=== PATIENT | male | born 1945 | race Caucasian/White ===

== ENCOUNTER → 2016-11-19 | Outpatient (REF) | payer OTHER ==
[2016-11-19 17:49] LABS: ALBUMIN 4.1 GM/DL (3.2-5.2); ALBUMIN/GLOBULIN RATIO 1.05 (1.00-1.93); BILIRUBIN,TOTAL 0.6 MG/DL (0.2-1.0); CALCIUM LEVEL 8.7 MG/DL (8.8-10.2); CREATININE FOR GFR 1.37 MG/DL (0.70-1.30); GLOMERULAR FILTRATION RATE 54.8 (>49); POTASSIUM SERUM 4.5 MEQ/L (3.5-5.1)
== END ==
LOC: M SFHCCLAY 10:52
PROVIDERS: ATTEND Family Medicine
DX: I10 Essential (primary) hypertension (principal); E78.5 Hyperlipidemia, unspecified
CPT/HCPCS: 80053; 80061; G0463

== ENCOUNTER → 2017-11-13 | Outpatient (REF) | payer OTHER ==
[2017-11-13 16:36] LABS: ALBUMIN 4.2 GM/DL (3.2-5.2); ALBUMIN/GLOBULIN RATIO 1.02 (1.00-1.93); ALKALINE PHOSPHATASE 112 U/L (45-117); ALT/SGPT 21 U/L (12-78); ANION GAP 6 MEQ/L (8-16); AST/SGOT 18 U/L (7-37); BILIRUBIN,TOTAL 0.5 MG/DL (0.2-1.0); BLOOD UREA NITROGEN 13 MG/DL (7-18); CALCIUM LEVEL 9.2 MG/DL (8.8-10.2); CARBON DIOXIDE LEVEL 29 MEQ/L (21-32); CHLORIDE LEVEL 99 MEQ/L (98-107); CREATININE FOR GFR 1.39 MG/DL (0.70-1.30); GLOMERULAR FILTRATION RATE 53.8 (>42); GLUCOSE, FASTING 97 MG/DL (70-100); POTASSIUM SERUM 4.4 MEQ/L (3.5-5.1); SODIUM LEVEL 134 MEQ/L (136-145); TOTAL PROTEIN 8.3 GM/DL (6.4-8.2)
== END ==
LOC: M SFHCCLAY 10:57
DX: I11.0 Hypertensive heart disease with heart failure (principal); I50.32 Chronic diastolic (congestive) heart failure
CPT/HCPCS: 80053

== ENCOUNTER → 2018-06-01 | Outpatient (REF) | payer OTHER ==
[2018-06-01 16:52] LABS: ALBUMIN 3.8 GM/DL (3.2-5.2); ALBUMIN/GLOBULIN RATIO 0.97 (1.00-1.93); ALKALINE PHOSPHATASE 115 U/L (45-117); ALT/SGPT 22 U/L (12-78); ANION GAP 7 MEQ/L (8-16); AST/SGOT 21 U/L (7-37); BILIRUBIN,TOTAL 0.6 MG/DL (0.2-1.0); BLOOD UREA NITROGEN 12 MG/DL (7-18); CALCIUM LEVEL 9.1 MG/DL (8.8-10.2); CARBON DIOXIDE LEVEL 30 MEQ/L (21-32); CHLORIDE LEVEL 97 MEQ/L (98-107); CHOLESTEROL LEVEL 172 MG/DL (<200); CHOLESTEROL RISK RATIO 3.822 (<5); CREATININE FOR GFR 1.44 MG/DL (0.70-1.30); GLOMERULAR FILTRATION RATE 51.5 (>42); GLUCOSE, FASTING 88 MG/DL (70-100); HDL CHOLESTEROL 45 MG/DL (>40); LDL CHOLESTEROL 99 MG/DL (<100); NON-HDL-C 127 MG/DL; POTASSIUM SERUM 4.6 MEQ/L (3.5-5.1); SODIUM LEVEL 134 MEQ/L (136-145); TOTAL PROTEIN 7.7 GM/DL (6.4-8.2); TRIGLYCERIDES LEVEL 139 MG/DL (<150)
== END ==
LOC: M SFHCCLAY 10:49
DX: E78.5 Hyperlipidemia, unspecified (principal); I10 Essential (primary) hypertension; Z23 Encounter for immunization
CPT/HCPCS: 80053

== ENCOUNTER → 2018-11-27 | Outpatient (REF) | payer MEDICARE ==
[2018-11-27 17:21] LABS: ALBUMIN 3.7 GM/DL (3.2-5.2); BILIRUBIN,TOTAL 0.5 MG/DL (0.2-1.0); CALCIUM LEVEL 8.7 MG/DL (8.8-10.2); CREATININE FOR GFR 1.37 MG/DL (0.70-1.30); GLOMERULAR FILTRATION RATE 54.5 (>42); POTASSIUM SERUM 4.5 MEQ/L (3.5-5.1); TOTAL PROTEIN 7.7 GM/DL (6.4-8.2)
== END ==
LOC: M SFHCCLAY 10:04
PROVIDERS: ATTEND Family Medicine
DX: I11.0 Hypertensive heart disease with heart failure (principal)

== ENCOUNTER → 2019-02-09 | Outpatient (CLI) | payer MEDICARE ==
--- NOTE | 2019-02-09 21:53 | REP ---
Clinical: Pneumonia. Technique: PA and lateral. Comparison: None. Findings: Small to moderate right pleural effusion and right middle lobe/right lower lobe opacity appreciated. Left hemithorax appears clear. Skeletal structures intact. Impression: Right pleural effusion and right middle lobe/lower lobe opacity. No prior examination is available for comparison. Consider chest CT for follow-up.
== END ==
LOC: M CLY 09:53
PROVIDERS: ATTEND Nurse Practitioner Family
DX: J90 Pleural effusion, not elsewhere classified (principal); R91.8 Other nonspecific abnormal finding of lung field

== ENCOUNTER → 2020-11-27 | Outpatient (REF) | payer MEDICARE ==
[2020-11-27 16:07] LABS: BASO # 0.1 10^3/uL (0.0-0.2); BASO % 0.4 % (0.0-1.0); EOS # 0.2 10^3/uL (0.0-0.5); EOS % 1.3 % (0.0-3.0); HEMATOCRIT 36.5 % (42.0-52.0); HEMOGLOBIN 11.6 g/dl (13.5-17.5); LYMPH # 1.4 10^3/uL (1.5-5.0); LYMPH % 10.5 % (24.0-44.0); MEAN CORPUSCULAR HEMOGLOBIN 27.2 pg (27.0-33.0); MEAN CORPUSCULAR HGB CONC 31.8 g/dl (32.0-36.5); MEAN CORPUSCULAR VOLUME 85.5 fl (80.0-96.0); MONO # 1.4 10^3/uL (0.0-0.8); MONO % 10.7 % (2.0-8.0); NEUTROPHILS # 10.1 10^3/uL (1.5-8.5); NEUTROPHILS % 76.6 % (36.0-66.0); PLATELET COUNT, AUTOMATED 601 10^3/uL (150-450); RED BLOOD COUNT 4.27 10^6/uL (4.30-6.10); WHITE BLOOD COUNT 13.2 10^3/uL (4.0-10.0)
[2020-11-27 16:35] LABS: ALBUMIN 3.3 GM/DL (3.2-5.2); BILIRUBIN,TOTAL 0.4 MG/DL (0.2-1.0); CHOLESTEROL RISK RATIO 3.926 (<5); CREATININE FOR GFR 1.44 MG/DL (0.70-1.30); GLOMERULAR FILTRATION RATE 51.2 (>42); MAGNESIUM LEVEL 2.1 MG/DL (1.8-2.4); POTASSIUM SERUM 5.2 MEQ/L (3.5-5.1); TOTAL PROTEIN 7.3 GM/DL (6.4-8.2)
== END ==
LOC: M SFHCCLAY 09:41
PROVIDERS: ATTEND Family Medicine
DX: I11.0 Hypertensive heart disease with heart failure (principal); I50.32 Chronic diastolic (congestive) heart failure; E78.5 Hyperlipidemia, unspecified; K21.9 Gastro-esophageal reflux disease without esophagitis

== ENCOUNTER → 2021-10-10 | Outpatient (CLI) | payer MEDICAID, MEDICARE | LOC: M EKG 12:54 | PROVIDERS: ATTEND Family Medicine | DX: Z86.79 Personal history of other diseases of the circulatory system (principal); I49.3 Ventricular premature depolarization ==

== ENCOUNTER → 2021-12-03 | Outpatient (CLI) | payer MEDICARE, MEDICAID | LOC: M CLY 10:53 | PROVIDERS: ATTEND Family Medicine | DX: J44.9 Chronic obstructive pulmonary disease, unspecified (principal) ==

== ENCOUNTER → 2022-04-15 | Outpatient (REF) | payer MEDICARE, MEDICAID | LOC: M SFHCWOUN 11:32 | PROVIDERS: ATTEND Surgery | DX: M86.171 Other acute osteomyelitis, right ankle and foot (principal); L97.514 Non-pressure chronic ulcer of other part of right foot with necrosis of bone ==

== ENCOUNTER → 2022-05-06 | Outpatient (CLI) | payer MEDICARE, MEDICAID | LOC: M RAD 13:54 | PROVIDERS: ATTEND Surgery | DX: L97.514 Non-pressure chronic ulcer of other part of right foot with necrosis of bone (principal); I73.9 Peripheral vascular disease, unspecified ==

== ENCOUNTER → 2022-05-14 | Outpatient (POV) | payer MEDICARE, MEDICAID ==
[~2022-05-14] VITALS: Ht 170.2 cm; Wt 66.8 kg
[2022-05-14 14:00] VITALS: BP 180/90
== END ==
LOC: M IRPOV 13:48
PROVIDERS: ATTEND Radiology Diagnostic Radiology
DX: I87.2 Venous insufficiency (chronic) (peripheral) (principal); F17.210 Nicotine dependence, cigarettes, uncomplicated; I10 Essential (primary) hypertension; T87.89 Other complications of amputation stump; E78.5 Hyperlipidemia, unspecified; I48.91 Unspecified atrial fibrillation; K21.9 Gastro-esophageal reflux disease without esophagitis; I50.9 Heart failure, unspecified

== ENCOUNTER → 2022-06-05 | Outpatient (CLI) | payer MEDICARE, MEDICAID | LOC: M LABSMTC 10:56 | PROVIDERS: ATTEND Anesthesiology | DX: Z01.812 Encounter for preprocedural laboratory examination (principal); Z11.52 Encounter for screening for COVID-19 ==

== ENCOUNTER → 2022-06-07 | Outpatient (REF) | payer MEDICARE, MEDICAID ==
[2022-06-07 17:33] LABS: BASO % 0.2 % (0.0-1.0); EOS # 0.1 10^3/uL (0.0-0.5); EOS % 0.8 % (0.0-3.0); HEMATOCRIT 37.6 % (42.0-52.0); HEMOGLOBIN 11.9 g/dl (13.5-17.5); LYMPH # 1.5 10^3/uL (1.5-5.0); LYMPH % 12.4 % (24.0-44.0); MEAN CORPUSCULAR HEMOGLOBIN 27.7 pg (27.0-33.0); MEAN CORPUSCULAR HGB CONC 31.6 g/dl (32.0-36.5); MEAN CORPUSCULAR VOLUME 87.6 fl (80.0-96.0); MONO # 1.1 10^3/uL (0.0-0.8); MONO % 8.5 % (2.0-8.0); NEUTROPHILS # 9.6 10^3/uL (1.5-8.5); NEUTROPHILS % 77.5 % (36.0-66.0); PLATELET COUNT, AUTOMATED 564 10^3/uL (150-450); RED BLOOD COUNT 4.29 10^6/uL (4.30-6.10); WHITE BLOOD COUNT 12.4 10^3/uL (4.0-10.0)
[2022-06-07 18:29] LABS: ALBUMIN 3.2 GM/DL (3.2-5.2); ALKALINE PHOSPHATASE 129 U/L (45-117); ALT/SGPT 24 U/L (12-78); AST/SGOT 20 U/L (7-37); BILIRUBIN,TOTAL 0.4 MG/DL (0.2-1.0); BLOOD UREA NITROGEN 15 MG/DL (7-18); CALCIUM LEVEL 8.9 MG/DL (8.8-10.2); CARBON DIOXIDE LEVEL 30 MEQ/L (21-32); CHLORIDE LEVEL 95 MEQ/L (98-107); CHOLESTEROL LEVEL 144 MG/DL (<200); CHOLESTEROL RISK RATIO 3.348 (<5); CREATININE FOR GFR 1.06 MG/DL (0.70-1.30); GLOMERULAR FILTRATION RATE > 60.0 (>42); GLUCOSE, FASTING 74 MG/DL (70-100); HDL CHOLESTEROL 43 MG/DL (>40); LDL CHOLESTEROL 69 MG/DL (<100); NON-HDL-C 101 MG/DL; POTASSIUM SERUM 5.2 MEQ/L (3.5-5.1); SODIUM LEVEL 130 MEQ/L (136-145); TRIGLYCERIDES LEVEL 158 MG/DL (<150)
== END ==
LOC: M SFHCCLAY 11:31
PROVIDERS: ATTEND Family Medicine
DX: I11.0 Hypertensive heart disease with heart failure (principal); I50.9 Heart failure, unspecified

== ENCOUNTER → 2022-06-10 | Outpatient (CLI) | payer MEDICAID, MEDICARE ==
[~2022-06-10] MED LIST: ISOVUE-300 61% 50ML VIAL As Ordered ONE; LIDOCAINE 1% MDV 20ML VIAL As Ordered ONE; MIDAZOLAM INJ 2MG/2ML VIAL (J2250 PER 1MG) As Ordered ONE; NS 1,000 ML IV SCH; diphenhydrAMINE 50MG/ML VIAL As Ordered ONE; fentaNYL 100 MCG/2 ML INJECTION As Ordered ONE
[2022-06-10 17:30] VITALS: BP 156/84
== END ==
LOC: M IRPRO 07:57
PROVIDERS: ATTEND Radiology Diagnostic Radiology
DX: I70.239 Atherosclerosis of native arteries of right leg with ulceration of unspecified site (principal); I70.92 Chronic total occlusion of artery of the extremities; L97.919 Non-pressure chronic ulcer of unspecified part of right lower leg with unspecified severity
CPT/HCPCS: 36246; 75630; 75774; 99152; 99153; C1769; C1887; C1894; J1200; J1644; J2250; J3010; Q9967

== ENCOUNTER 2022-11-09 14:27 | Inpatient (IN) | payer MEDICARE, MEDICAID ==
[~2022-11-09] VITALS: Ht 170.2 cm; Wt 60.4 kg
[2022-11-09 15:01] LABS: BASO % 0.2 % (0.0-1.0); EOS % 0.3 % (0.0-3.0); HEMOGLOBIN 9.3 g/dl (13.5-17.5); LYMPH # 1.6 10^3/uL (1.5-5.0); LYMPH % 10.4 % (24.0-44.0); MEAN CORPUSCULAR HEMOGLOBIN 25.9 pg (27.0-33.0); MEAN CORPUSCULAR VOLUME 86.4 fl (80.0-96.0); MONO # 1.4 10^3/uL (0.0-0.8); MONO % 8.8 % (2.0-8.0); NEUTROPHILS # 12.6 10^3/uL (1.5-8.5); NEUTROPHILS % 79.4 % (36.0-66.0); PLATELET COUNT, AUTOMATED 968 10^3/uL (150-450); RED BLOOD COUNT 3.59 10^6/uL (4.30-6.10); WHITE BLOOD COUNT 15.8 10^3/uL (4.0-10.0)
[2022-11-09 15:05] LABS: BLOOD UREA NITROGEN 17 MG/DL (9-23); CARBON DIOXIDE LEVEL 30 MMOL/L (20-31); CHLORIDE LEVEL 101 MMOL/L (98-107); CREATININE FOR GFR 1.37 MG/DL (0.70-1.30); GLOMERULAR FILTRATION RATE 53.9 (>42); GLUCOSE, FASTING 92 MG/DL (74-106); POTASSIUM SERUM 4.8 MMOL/L (3.5-5.1); SODIUM LEVEL 136 MMOL/L (136-145)
[2022-11-09 15:09] LABS: ERYTHROCYTE SEDIMENTATION RATE > 130 mm/hr (0-20)
[2022-11-09 15:24] LABS: RSV AMPLIFICATION NEGATIVE (NEGATIVE)
[2022-11-09] MEDS ORDERED: PIPERACILLIN/TAZOBACTAM SOD 4.5 GM in D5W MINI-BAG PLUS 50 ML IV ONE (15:30)
[2022-11-09] MEDS ORDERED: HEPARIN SOD (PORCINE) 5000UNITS/ML 1ML VIAL/SYRINGE SQ SCH (16:00)
[2022-11-09] MEDS ORDERED: TRAZ-252 PO (17:13)
[2022-11-09] MEDS ORDERED: POTA-151 PO (17:13)
[2022-11-09] MEDS ORDERED: FAMO40TA3 PO (17:13)
[2022-11-09] MEDS ORDERED: CARV6.25 PO (17:13)
[2022-11-09] MEDS ORDERED: FLUT1BLS8 INH ×2 (17:13)
[2022-11-09] MEDS ORDERED: ATOR40TA75 PO (17:13)
[2022-11-09] MEDS ORDERED: FURO20TA2 PO (17:13)
[2022-11-09] MEDS ORDERED: SERT25TA21 PO (17:13)
[2022-11-09] MEDS ORDERED: ELIQ5TAB PO (17:13)
[2022-11-09] MEDS ORDERED: AMLO2.5T3 PO (17:13)
[2022-11-09] MEDS ORDERED: BUSP15TA47 PO (17:13)
[2022-11-09] MEDS ORDERED: SANT250O8 TOP (17:13)
[2022-11-09] MEDS ORDERED: VALS1TAB66 PO (17:13)
[2022-11-09] MEDS ORDERED: HOME MED LIST COMPLETE! XX SCH (17:15)
[2022-11-09 17:21] LABS: INR 1.45; PROTHROMBIN TIME 17.9 SECONDS (12.5-14.5)
[2022-11-09 17:22] LABS: PARTIAL THROMBOPLASTIN TIME 44.9 SECONDS (24.8-34.2)
[2022-11-09 17:22] LABS: ALBUMIN 2.3 G/DL (3.2-5.2); ALKALINE PHOSPHATASE 130 U/L (46-116); ALT/SGPT 11 U/L (7.0-40); AST/SGOT 13 U/L (<34); BILIRUBIN,DIRECT < 0.1 MG/DL (<0.4); BILIRUBIN,TOTAL 0.2 MG/DL (0.3-1.2); TOTAL PROTEIN 6.4 G/DL (5.7-8.2)
[2022-11-09 17:40] VITALS: BP 165/90
[2022-11-09] MEDS: LACTOBACILLUS ACIDOPHILUS CAP (BACID) PO SCH (17:52)
[2022-11-09] MEDS: NS 1,000 ML IV SCH (17:52)
[2022-11-09 19:00] VITALS: BP 137/72
[2022-11-09] MEDS ORDERED: CLINDAMYCIN 600 MG in IV 1 EA IV SCH (19:00)
[2022-11-09 20:00] VITALS: BP 138/70
[2022-11-09] MEDS: CLINDAMYCIN 900 MG in IV 1 EA IV SCH (20:14)
[2022-11-09] MEDS: PIPERACILLIN/TAZOBACTAM SOD 3.375 GM in D5W MINI-BAG PLUS 50 ML IV SCH (21:20)
[2022-11-09] MEDS: HEPARIN SOD (PORCINE) 5000UNITS/ML 1ML VIAL/SYRINGE SQ SCH (21:57)
[2022-11-10] MEDS: CLINDAMYCIN 900 MG in IV 1 EA IV SCH ×3 (02:57→18:44)
[2022-11-10] MEDS: NS 1,000 ML IV SCH (04:12)
[2022-11-10] MEDS: PIPERACILLIN/TAZOBACTAM SOD 3.375 GM in D5W MINI-BAG PLUS 50 ML IV SCH ×4 (04:12→21:00)
[2022-11-10] MEDS: HEPARIN SOD (PORCINE) 5000UNITS/ML 1ML VIAL/SYRINGE SQ SCH (05:48)
[2022-11-10 06:00] VITALS: BP 136/71
[2022-11-10 06:14] LABS: HEMATOCRIT 24.8 % (42.0-52.0); HEMOGLOBIN 7.6 g/dl (13.5-17.5); MEAN CORPUSCULAR HEMOGLOBIN 26.2 pg (27.0-33.0); MEAN CORPUSCULAR HGB CONC 30.6 g/dl (32.0-36.5); MEAN CORPUSCULAR VOLUME 85.5 fl (80.0-96.0); WHITE BLOOD COUNT 11.1 10^3/uL (4.0-10.0)
[2022-11-10 06:20] LABS: PLATELET COUNT, AUTOMATED 642 10^3/uL (150-450)
[2022-11-10 07:18] LABS: ALBUMIN 1.7 G/DL (3.2-5.2); ALKALINE PHOSPHATASE 99 U/L (46-116); ALT/SGPT < 9 U/L (7.0-40); AST/SGOT 11 U/L (<34); BILIRUBIN,TOTAL 0.2 MG/DL (0.3-1.2); BLOOD UREA NITROGEN 14 MG/DL (9-23); CALCIUM LEVEL 7.5 MG/DL (8.3-10.6); CARBON DIOXIDE LEVEL 28 MMOL/L (20-31); CHLORIDE LEVEL 104 MMOL/L (98-107); CREATININE FOR GFR 1.15 MG/DL (0.70-1.30); GLOMERULAR FILTRATION RATE > 60.0 (>42); GLUCOSE, FASTING 90 MG/DL (74-106); POTASSIUM SERUM 4.5 MMOL/L (3.5-5.1); SODIUM LEVEL 137 MMOL/L (136-145); TOTAL PROTEIN 4.9 G/DL (5.7-8.2)
[2022-11-10] MEDS: TIOTROPIUM INHALER/CAPSULE (SPIRIVA) INH SCH (08:00)
[2022-11-10] MEDS: LACTOBACILLUS ACIDOPHILUS CAP (BACID) PO SCH ×2 (09:09→17:33)
[2022-11-10] MEDS ORDERED: ISOVUE-370 76% 100ML VIAL As Ordered ONE (12:01)
[2022-11-10] MEDS: SILVER SULFADIAZINE 1% CR 50 GM JAR TOP SCH ×2 (12:22→20:47)
[2022-11-10] MEDS ORDERED: traZODone 50 MG TAB PO PRN (13:50)
[2022-11-10 14:00] VITALS: BP 138/66
[2022-11-10] MEDS ORDERED: ENOXAPARIN 60MG/0.6ML SYRINGE (J1650 PER 10MG) SC SCH (15:00)
[2022-11-10] MEDS: CARVedilol 6.25 MG TAB PO SCH ×2 (15:06→20:47)
[2022-11-10] MEDS: ATORVASTATIN 20 MG TAB PO SCH (15:06)
[2022-11-10] MEDS: busPIRone 5 MG TAB PO SCH ×2 (15:06→20:47)
[2022-11-10] MEDS: SERTRALINE HCL 25 MG TABLET PO SCH (15:07)
[2022-11-10] MEDS: FUROSEMIDE 20 MG TAB PO SCH (17:33)
[2022-11-10] MEDS: ACETAMINOPHEN TAB 650MG DOSE (2X325MG) PO PRN ×2 (17:33→20:58)
[2022-11-10 18:12] LABS: HEMATOCRIT 27.3 % (42.0-52.0); HEMOGLOBIN 8.3 g/dl (13.5-17.5); MEAN CORPUSCULAR HEMOGLOBIN 25.7 pg (27.0-33.0); MEAN CORPUSCULAR HGB CONC 30.4 g/dl (32.0-36.5); MEAN CORPUSCULAR VOLUME 84.5 fl (80.0-96.0); PLATELET COUNT, AUTOMATED 725 10^3/uL (150-450); RED BLOOD COUNT 3.23 10^6/uL (4.30-6.10); WHITE BLOOD COUNT 12.7 10^3/uL (4.0-10.0)
[2022-11-10 20:00] VITALS: BP 120/61
[2022-11-10] MEDS: ADVAIR HFA 115/21MCG INHALER INH SCH (20:07)
[2022-11-10] MEDS: FAMOTIDINE 20 MG TAB PO SCH (20:47)
[2022-11-11] MEDS: CLINDAMYCIN 900 MG in IV 1 EA IV SCH ×3 (03:26→18:40)
[2022-11-11] MEDS: PIPERACILLIN/TAZOBACTAM SOD 3.375 GM in D5W MINI-BAG PLUS 50 ML IV SCH ×4 (04:58→21:10)
[2022-11-11] MEDS: ENOXAPARIN 60MG/0.6ML SYRINGE (J1650 PER 10MG) SC SCH ×2 (05:29→09:25)
[2022-11-11 06:00] VITALS: BP 140/72
[2022-11-11 06:28] LABS: HEMATOCRIT 23.7 % (42.0-52.0); HEMOGLOBIN 7.4 g/dl (13.5-17.5); MEAN CORPUSCULAR HEMOGLOBIN 26.2 pg (27.0-33.0); MEAN CORPUSCULAR HGB CONC 31.2 g/dl (32.0-36.5); PLATELET COUNT, AUTOMATED 651 10^3/uL (150-450); RED BLOOD COUNT 2.82 10^6/uL (4.30-6.10); WHITE BLOOD COUNT 11.9 10^3/uL (4.0-10.0)
[2022-11-11 06:56] LABS: ALKALINE PHOSPHATASE 91 U/L (46-116); ALT/SGPT < 9 U/L (7.0-40); AST/SGOT 11 U/L (<34); BILIRUBIN,TOTAL 0.2 MG/DL (0.3-1.2); BLOOD UREA NITROGEN 10 MG/DL (9-23); CALCIUM LEVEL 7.7 MG/DL (8.3-10.6); CARBON DIOXIDE LEVEL 29 MMOL/L (20-31); CHLORIDE LEVEL 102 MMOL/L (98-107); CREATININE FOR GFR 1.11 MG/DL (0.70-1.30); GLOMERULAR FILTRATION RATE > 60.0 (>42); GLUCOSE, FASTING 82 MG/DL (74-106); POTASSIUM SERUM 3.8 MMOL/L (3.5-5.1); SODIUM LEVEL 136 MMOL/L (136-145); TOTAL PROTEIN 5.5 G/DL (5.7-8.2)
[2022-11-11] MEDS: ADVAIR HFA 115/21MCG INHALER INH SCH ×2 (08:00→20:17)
[2022-11-11] MEDS: busPIRone 5 MG TAB PO SCH ×3 (09:25→21:07)
[2022-11-11] MEDS: LACTOBACILLUS ACIDOPHILUS CAP (BACID) PO SCH ×2 (09:25→18:41)
[2022-11-11] MEDS: ATORVASTATIN 20 MG TAB PO SCH (09:25)
[2022-11-11] MEDS: SERTRALINE HCL 25 MG TABLET PO SCH (09:26)
[2022-11-11] MEDS: FUROSEMIDE 20 MG TAB PO SCH ×2 (09:26→16:43)
[2022-11-11] MEDS: SILVER SULFADIAZINE 1% CR 50 GM JAR TOP SCH ×2 (09:27→21:15)
[2022-11-11] MEDS: CARVedilol 6.25 MG TAB PO SCH ×2 (09:27→21:09)
[2022-11-11] MEDS: TIOTROPIUM INHALER/CAPSULE (SPIRIVA) INH SCH (09:52)
[2022-11-11 15:42] LABS: PERCENT SATURATION 9.6 % (19.7-50.0)
[2022-11-11 15:46] LABS: FERRITIN 113.9 NG/ML (10.5-307.3)
[2022-11-11 16:00] VITALS: BP 120/70
[2022-11-11] MEDS ORDERED: MIRALAX *UNIT DOSE* 17GM PACKET PO PRN (18:25)
[2022-11-11] MEDS: ACETAMINOPHEN TAB 650MG DOSE (2X325MG) PO PRN (18:41)
[2022-11-11] MEDS ORDERED: DOCUSATE SODIUM 100MG CAPSULE PO SCH (21:00)
[2022-11-11] MEDS: FAMOTIDINE 20 MG TAB PO SCH (21:07)
[2022-11-11] MEDS: FERROUS SULFATE 325MG TAB PO SCH (21:07)
[2022-11-11 21:30] VITALS: BP 136/66
[2022-11-12] MEDS: CLINDAMYCIN 900 MG in IV 1 EA IV SCH ×2 (02:16→17:00)
[2022-11-12] MEDS: PIPERACILLIN/TAZOBACTAM SOD 3.375 GM in D5W MINI-BAG PLUS 50 ML IV SCH ×4 (03:22→21:10)
[2022-11-12 05:48] VITALS: BP 134/67
[2022-11-12 06:02] LABS: HEMATOCRIT 24.8 % (42.0-52.0); HEMOGLOBIN 7.6 g/dl (13.5-17.5); MEAN CORPUSCULAR HEMOGLOBIN 25.4 pg (27.0-33.0); MEAN CORPUSCULAR HGB CONC 30.6 g/dl (32.0-36.5); MEAN CORPUSCULAR VOLUME 82.9 fl (80.0-96.0); PLATELET COUNT, AUTOMATED 655 10^3/uL (150-450); RED BLOOD COUNT 2.99 10^6/uL (4.30-6.10); WHITE BLOOD COUNT 9.8 10^3/uL (4.0-10.0)
[2022-11-12 06:34] LABS: ALBUMIN 1.8 G/DL (3.2-5.2); ALKALINE PHOSPHATASE 91 U/L (46-116); ALT/SGPT < 9 U/L (7.0-40); AST/SGOT 11 U/L (<34); BILIRUBIN,TOTAL 0.2 MG/DL (0.3-1.2); BLOOD UREA NITROGEN 8 MG/DL (9-23); CALCIUM LEVEL 7.6 MG/DL (8.3-10.6); CARBON DIOXIDE LEVEL 28 MMOL/L (20-31); CHLORIDE LEVEL 100 MMOL/L (98-107); CREATININE FOR GFR 1.11 MG/DL (0.70-1.30); GLOMERULAR FILTRATION RATE > 60.0 (>42); GLUCOSE, FASTING 75 MG/DL (74-106); MAGNESIUM LEVEL 1.5 MG/DL (1.8-2.4); POTASSIUM SERUM 3.8 MMOL/L (3.5-5.1); SODIUM LEVEL 136 MMOL/L (136-145)
[2022-11-12] MEDS ORDERED: MAG SULF 1GM/100ML (MAG RUN) 1 GM in IV 1 EA IV ONE (08:00)
[2022-11-12] MEDS: ADVAIR HFA 115/21MCG INHALER INH SCH ×2 (08:16→20:16)
[2022-11-12] MEDS: TIOTROPIUM INHALER/CAPSULE (SPIRIVA) INH SCH (08:16)
[2022-11-12] MEDS: LACTOBACILLUS ACIDOPHILUS CAP (BACID) PO SCH ×2 (10:04→17:15)
[2022-11-12] MEDS: busPIRone 5 MG TAB PO SCH ×3 (10:04→21:10)
[2022-11-12] MEDS: ATORVASTATIN 20 MG TAB PO SCH (10:04)
[2022-11-12] MEDS: FERROUS SULFATE 325MG TAB PO SCH ×2 (10:04→21:10)
[2022-11-12] MEDS: CARVedilol 6.25 MG TAB PO SCH ×2 (10:04→21:13)
[2022-11-12] MEDS: FUROSEMIDE 20 MG TAB PO SCH ×2 (10:05→17:15)
[2022-11-12] MEDS: SERTRALINE HCL 25 MG TABLET PO SCH (10:05)
[2022-11-12] MEDS: SILVER SULFADIAZINE 1% CR 50 GM JAR TOP SCH ×2 (10:06→21:18)
[2022-11-12] MEDS ORDERED: fentaNYL 100 MCG/2 ML INJECTION As Ordered ONE (12:09)
[2022-11-12] MEDS ORDERED: ISOVUE-300 61% 100ML VIAL As Ordered ONE (12:09)
[2022-11-12] MEDS ORDERED: LIDOCAINE 1% MDV 20ML VIAL As Ordered ONE (12:09)
[2022-11-12] MEDS ORDERED: HEPARIN 1,000UNITS/ML 10ML VIAL (FOR RADIOLOGY & DIALYSIS ONLY) As Ordered ONE (12:09)
[2022-11-12] MEDS ORDERED: MIDAZOLAM INJ 2MG/2ML VIAL As Ordered ONE (12:10)
[2022-11-12] MEDS ORDERED: ONDANSETRON 4MG 2ML VIAL As Ordered ONE (14:44)
[2022-11-12 16:10] VITALS: BP 156/87
[2022-11-12 16:18] LABS: VITAMIN B12 LEVEL 375 PG/ML (211-911)
[2022-11-12 16:40] VITALS: BP 157/84
[2022-11-12 17:40] VITALS: BP 114/77
[2022-11-12] MEDS: ACETAMINOPHEN TAB 650MG DOSE (2X325MG) PO PRN (18:49)
[2022-11-12] MEDS: FAMOTIDINE 20 MG TAB PO SCH (21:09)
[2022-11-12 21:41] VITALS: BP 134/71
[2022-11-13] MEDS: CLINDAMYCIN 900 MG in IV 1 EA IV SCH ×2 (00:01→09:39)
[2022-11-13] MEDS: PIPERACILLIN/TAZOBACTAM SOD 3.375 GM in D5W MINI-BAG PLUS 50 ML IV SCH (03:49)
[2022-11-13 05:45] VITALS: BP 133/68
[2022-11-13 06:10] LABS: BASO % 0.2 % (0.0-1.0); EOS # 0.1 10^3/uL (0.0-0.5); EOS % 0.7 % (0.0-3.0); HEMATOCRIT 25.9 % (42.0-52.0); MEAN CORPUSCULAR HEMOGLOBIN 25.7 pg (27.0-33.0); MEAN CORPUSCULAR HGB CONC 30.9 g/dl (32.0-36.5); MEAN CORPUSCULAR VOLUME 83.3 fl (80.0-96.0); MONO # 1.4 10^3/uL (0.0-0.8); MONO % 12.1 % (2.0-8.0); NEUTROPHILS % 77.5 % (36.0-66.0); PLATELET COUNT, AUTOMATED 662 10^3/uL (150-450); RED BLOOD COUNT 3.11 10^6/uL (4.30-6.10); WHITE BLOOD COUNT 11.6 10^3/uL (4.0-10.0)
[2022-11-13 06:37] LABS: ALBUMIN 1.9 G/DL (3.2-5.2); ALKALINE PHOSPHATASE 90 U/L (46-116); ALT/SGPT < 9 U/L (7.0-40); AST/SGOT 14 U/L (<34); BILIRUBIN,TOTAL 0.2 MG/DL (0.3-1.2); BLOOD UREA NITROGEN 7 MG/DL (9-23); CALCIUM LEVEL 7.6 MG/DL (8.3-10.6); CARBON DIOXIDE LEVEL 30 MMOL/L (20-31); CHLORIDE LEVEL 102 MMOL/L (98-107); GLOMERULAR FILTRATION RATE > 60.0 (>42); GLUCOSE, FASTING 79 MG/DL (74-106); MAGNESIUM LEVEL 1.6 MG/DL (1.8-2.4); POTASSIUM SERUM 3.4 MMOL/L (3.5-5.1); SODIUM LEVEL 137 MMOL/L (136-145); TOTAL PROTEIN 5.2 G/DL (5.7-8.2)
[2022-11-13] MEDS ORDERED: MAG SULF 1GM/100ML (MAG RUN) 1 GM in IV 1 EA IV ONE (08:00)
[2022-11-13] MEDS: ADVAIR HFA 115/21MCG INHALER INH SCH ×2 (08:19→21:10)
[2022-11-13] MEDS: TIOTROPIUM INHALER/CAPSULE (SPIRIVA) INH SCH (08:19)
[2022-11-13] MEDS ORDERED: POTASSIUM CHLORIDE 10MEQ SR TABLET PO ONE (08:55)
[2022-11-13] MEDS: ASPIRIN 81MG ENTERIC TABLET PO SCH (09:00)
[2022-11-13] MEDS: ENOXAPARIN 60MG/0.6ML SYRINGE (J1650 PER 10MG) SC SCH ×2 (09:00→22:08)
[2022-11-13] MEDS ORDERED: KCL 10MEQ/100ML SWI (KRUN) 10 MEQ in IV 1 EA IV ONE (09:00)
[2022-11-13] MEDS: NS 1,000 ML IV SCH (09:35)
[2022-11-13] MEDS: FERROUS SULFATE 325MG TAB PO SCH ×2 (09:38→22:07)
[2022-11-13] MEDS: LACTOBACILLUS ACIDOPHILUS CAP (BACID) PO SCH ×2 (09:38→18:57)
[2022-11-13] MEDS: FUROSEMIDE 20 MG TAB PO SCH ×2 (09:38→18:57)
[2022-11-13] MEDS: ATORVASTATIN 20 MG TAB PO SCH (09:38)
[2022-11-13] MEDS: SERTRALINE HCL 25 MG TABLET PO SCH (09:39)
[2022-11-13] MEDS: CARVedilol 6.25 MG TAB PO SCH ×2 (09:39→22:12)
[2022-11-13] MEDS: SILVER SULFADIAZINE 1% CR 50 GM JAR TOP SCH ×2 (09:40→22:10)
[2022-11-13] MEDS: busPIRone 5 MG TAB PO SCH ×3 (09:43→22:08)
[2022-11-13] MEDS: CEFEPIME HCL 2 GM in D5W MINI-BAG PLUS 50 ML IV SCH ×2 (11:30→22:10)
[2022-11-13] MEDS ORDERED: VANCOMYCIN HCL 1,000 MG, VIAL MATE ADAPTER 1 EACH in D5W 250 ML IV SCH (12:00)
[2022-11-13] MEDS ORDERED: VANCOMYCIN HCL 500 MG in D5W MINI-BAG PLUS 100 ML IV ONE (14:00)
[2022-11-13] MEDS: metroNIDAZOLE 500 MG in IV 1 EA IV SCH ×2 (15:08→23:51)
[2022-11-13] MEDS ORDERED: ROPIvacaine 0.5% 30ML VIAL As Ordered ONE (16:14)
[2022-11-13] MEDS ORDERED: BUPIVACAINE HCL 0.5% 30ML VIAL As Ordered ONE ×2 (16:14→16:15)
[2022-11-13] MEDS ORDERED: LIDOCAINE 2% MDV 20ML VIAL As Ordered ONE (16:14)
[2022-11-13] MEDS ORDERED: SILVER SULFADIAZINE 1% CR 50 GM JAR As Ordered ONE (16:17)
[2022-11-13] MEDS ORDERED: TOBRAMYCIN SULF 1.2GM VIAL As Ordered ONE (17:06)
[2022-11-13] MEDS ORDERED: MIDAZOLAM INJ 2MG/2ML VIAL As Ordered ONE (17:10)
[2022-11-13] MEDS ORDERED: KETAMINE HCL 200MG/20ML VIAL As Ordered ONE (17:10)
[2022-11-13] MEDS ORDERED: propofoL 200 MG/20 ML VIAL As Ordered ONE (17:10)
[2022-11-13] MEDS ORDERED: ONDANSETRON 4MG 2ML VIAL As Ordered ONE (17:10)
[2022-11-13] MEDS ORDERED: fentaNYL 100 MCG/2 ML INJECTION As Ordered ONE (17:10)
[2022-11-13] MEDS ORDERED: LIDOCAINE 2% 100MG/5ML SDV (FOR ANES.) As Ordered ONE (17:10)
[2022-11-13] MEDS ORDERED: GENTAMICIN SULF 80MG/2ML VIAL As Ordered ONE (17:26)
[2022-11-13] MEDS ORDERED: ACETAMINOPHEN 1000MG 100ML IV BAG As Ordered ONE (17:27)
[2022-11-13 18:00] VITALS: BP 127/72
[2022-11-13] MEDS ORDERED: LR 1,000 ML IV SCH (18:10)
[2022-11-13] MEDS ORDERED: oxyCODONE 5MG TAB PO PRN (18:10)
[2022-11-13] MEDS ORDERED: ONDANSETRON 4MG 2ML VIAL IV PRN (18:10)
[2022-11-13] MEDS ORDERED: fentaNYL 100 MCG/2 ML INJECTION IV PRN (18:10)
[2022-11-13] MEDS ORDERED: HYDROMORPHONE HCL 0.5 MG/ 0.5 ML SYRINGE IV PRN (18:10)
[2022-11-13 20:30] VITALS: BP 128/63
[2022-11-13 21:00] VITALS: BP 122/61
[2022-11-13 22:00] VITALS: BP 118/60
[2022-11-13] MEDS: FAMOTIDINE 20 MG TAB PO SCH (22:08)
[2022-11-13] MEDS: ACETAMINOPHEN TAB 650MG DOSE (2X325MG) PO PRN (22:15)
[2022-11-14] VITALS (10 sets, daily range): BP systolic 123–155; BP diastolic 56–79; O2SAT 99
[2022-11-14] MEDS: ACETAMINOPHEN TAB 650MG DOSE (2X325MG) PO PRN ×3 (04:15→22:25)
[2022-11-14] MEDS: metroNIDAZOLE 500 MG in IV 1 EA IV SCH ×3 (06:36→23:11)
[2022-11-14] MEDS: NS 1,000 ML IV SCH (06:36)
[2022-11-14 07:18] LABS: BASO % 0.2 % (0.0-1.0); EOS # 0.2 10^3/uL (0.0-0.5); EOS % 1.1 % (0.0-3.0); HEMATOCRIT 22.2 % (42.0-52.0); LYMPH % 7.3 % (24.0-44.0); MEAN CORPUSCULAR HEMOGLOBIN 26.3 pg (27.0-33.0); MEAN CORPUSCULAR HGB CONC 31.5 g/dl (32.0-36.5); MEAN CORPUSCULAR VOLUME 83.5 fl (80.0-96.0); MONO # 1.4 10^3/uL (0.0-0.8); MONO % 10.1 % (2.0-8.0); NEUTROPHILS # 11.1 10^3/uL (1.5-8.5); NEUTROPHILS % 80.6 % (36.0-66.0); PLATELET COUNT, AUTOMATED 538 10^3/uL (150-450); RED BLOOD COUNT 2.66 10^6/uL (4.30-6.10); WHITE BLOOD COUNT 13.7 10^3/uL (4.0-10.0)
[2022-11-14 08:01] LABS: ALBUMIN 1.7 G/DL (3.2-5.2); ALKALINE PHOSPHATASE 79 U/L (46-116); ALT/SGPT < 9 U/L (7.0-40); AST/SGOT 14 U/L (<34); BILIRUBIN,TOTAL < 0.2 MG/DL (0.3-1.2); BLOOD UREA NITROGEN 7 MG/DL (9-23); CALCIUM LEVEL 7.2 MG/DL (8.3-10.6); CARBON DIOXIDE LEVEL 28 MMOL/L (20-31); CHLORIDE LEVEL 104 MMOL/L (98-107); CREATININE FOR GFR 1.07 MG/DL (0.70-1.30); GLOMERULAR FILTRATION RATE > 60.0 (>42); GLUCOSE, FASTING 83 MG/DL (74-106); MAGNESIUM LEVEL 1.7 MG/DL (1.8-2.4); POTASSIUM SERUM 3.6 MMOL/L (3.5-5.1); SODIUM LEVEL 136 MMOL/L (136-145); TOTAL PROTEIN 4.7 G/DL (5.7-8.2)
[2022-11-14] MEDS: TIOTROPIUM INHALER/CAPSULE (SPIRIVA) INH SCH (08:30)
[2022-11-14] MEDS: ADVAIR HFA 115/21MCG INHALER INH SCH ×2 (08:30→20:59)
[2022-11-14] MEDS: FERROUS SULFATE 325MG TAB PO SCH ×2 (09:48→22:25)
[2022-11-14] MEDS: FUROSEMIDE 20 MG TAB PO SCH ×2 (09:49→18:30)
[2022-11-14] MEDS: LACTOBACILLUS ACIDOPHILUS CAP (BACID) PO SCH ×2 (09:49→18:30)
[2022-11-14] MEDS: SERTRALINE HCL 25 MG TABLET PO SCH (09:49)
[2022-11-14] MEDS: ATORVASTATIN 20 MG TAB PO SCH (09:49)
[2022-11-14] MEDS: CARVedilol 6.25 MG TAB PO SCH ×2 (09:50→22:27)
[2022-11-14] MEDS: ASPIRIN 81MG ENTERIC TABLET PO SCH (09:50)
[2022-11-14] MEDS: ENOXAPARIN 60MG/0.6ML SYRINGE (J1650 PER 10MG) SC SCH ×2 (09:51→22:24)
[2022-11-14] MEDS: SILVER SULFADIAZINE 1% CR 50 GM JAR TOP SCH (09:51)
[2022-11-14] MEDS: VANCOMYCIN HCL 1,000 MG, VIAL MATE ADAPTER 1 EACH in D5W 250 ML IV SCH (09:57)
[2022-11-14] MEDS ORDERED: MAGNESIUM OXIDE 400MG TAB (MAG-OX) PO ONE (10:00)
[2022-11-14] MEDS: busPIRone 5 MG TAB PO SCH ×3 (10:04→22:28)
[2022-11-14] MEDS: CEFEPIME HCL 2 GM in D5W MINI-BAG PLUS 50 ML IV SCH ×2 (11:00→22:23)
[2022-11-14 14:55] LABS: CLOSTRIDIUM DIFFICILE PCR POSITIVE (NEGATIVE)
[2022-11-14] MEDS: VANCOMYCIN ORAL SOL 250MG/5ML ORAL SYRINGE PO SCH (18:30)
[2022-11-14] MEDS: FAMOTIDINE 20 MG TAB PO SCH (22:24)
[2022-11-15] MEDS: NS 1,000 ML IV SCH ×2 (01:41→21:04)
[2022-11-15] MEDS: VANCOMYCIN ORAL SOL 250MG/5ML ORAL SYRINGE PO SCH ×5 (01:41→23:40)
[2022-11-15 05:13] VITALS: BP 149/80
[2022-11-15 06:15] LABS: BASO % 0.2 % (0.0-1.0); EOS # 0.2 10^3/uL (0.0-0.5); EOS % 1.4 % (0.0-3.0); HEMOGLOBIN 8.5 g/dl (13.5-17.5); LYMPH # 1.3 10^3/uL (1.5-5.0); LYMPH % 9.9 % (24.0-44.0); MEAN CORPUSCULAR HEMOGLOBIN 26.3 pg (27.0-33.0); MEAN CORPUSCULAR HGB CONC 31.5 g/dl (32.0-36.5); MEAN CORPUSCULAR VOLUME 83.6 fl (80.0-96.0); MONO # 1.5 10^3/uL (0.0-0.8); MONO % 11.1 % (2.0-8.0); NEUTROPHILS # 10.2 10^3/uL (1.5-8.5); NEUTROPHILS % 76.8 % (36.0-66.0); PLATELET COUNT, AUTOMATED 580 10^3/uL (150-450); RED BLOOD COUNT 3.23 10^6/uL (4.30-6.10); WHITE BLOOD COUNT 13.3 10^3/uL (4.0-10.0)
[2022-11-15] MEDS: metroNIDAZOLE 500 MG in IV 1 EA IV SCH (06:50)
[2022-11-15 06:58] LABS: ALBUMIN 1.8 G/DL (3.2-5.2); ALKALINE PHOSPHATASE 79 U/L (46-116); ALT/SGPT < 9 U/L (7.0-40); AST/SGOT 14 U/L (<34); BILIRUBIN,TOTAL 0.2 MG/DL (0.3-1.2); BLOOD UREA NITROGEN 8 MG/DL (9-23); CALCIUM LEVEL 7.3 MG/DL (8.3-10.6); CARBON DIOXIDE LEVEL 28 MMOL/L (20-31); CHLORIDE LEVEL 103 MMOL/L (98-107); GLOMERULAR FILTRATION RATE > 60.0 (>42); GLUCOSE, FASTING 73 MG/DL (74-106); MAGNESIUM LEVEL 1.8 MG/DL (1.8-2.4); POTASSIUM SERUM 3.6 MMOL/L (3.5-5.1); SODIUM LEVEL 138 MMOL/L (136-145)
[2022-11-15] MEDS: TIOTROPIUM INHALER/CAPSULE (SPIRIVA) INH SCH (07:29)
[2022-11-15] MEDS: ADVAIR HFA 115/21MCG INHALER INH SCH ×2 (07:29→21:24)
[2022-11-15 10:26] VITALS: BP 150/79
[2022-11-15] MEDS: VANCOMYCIN HCL 1,000 MG, VIAL MATE ADAPTER 1 EACH in D5W 250 ML IV SCH (10:26)
[2022-11-15] MEDS: ENOXAPARIN 60MG/0.6ML SYRINGE (J1650 PER 10MG) SC SCH ×2 (10:29→20:59)
[2022-11-15] MEDS: ACETAMINOPHEN TAB 650MG DOSE (2X325MG) PO PRN (10:29)
[2022-11-15] MEDS: ASPIRIN 81MG ENTERIC TABLET PO SCH (10:29)
[2022-11-15] MEDS: CARVedilol 6.25 MG TAB PO SCH ×2 (10:30→21:00)
[2022-11-15] MEDS: SERTRALINE HCL 25 MG TABLET PO SCH (10:30)
[2022-11-15] MEDS: ATORVASTATIN 20 MG TAB PO SCH (10:30)
[2022-11-15] MEDS: busPIRone 5 MG TAB PO SCH (10:30)
[2022-11-15] MEDS: FERROUS SULFATE 325MG TAB PO SCH ×2 (10:31→20:58)
[2022-11-15] MEDS: FUROSEMIDE 20 MG TAB PO SCH ×2 (10:31→17:48)
[2022-11-15] MEDS: LACTOBACILLUS ACIDOPHILUS CAP (BACID) PO SCH ×2 (10:33→17:48)
[2022-11-15] MEDS: CEFEPIME HCL 2 GM in D5W MINI-BAG PLUS 50 ML IV SCH (12:01)
[2022-11-15 14:00] VITALS: BP 149/76
[2022-11-15] MEDS ORDERED: traZODone 100 MG TAB PO PRN (15:11)
[2022-11-15] MEDS: FAMOTIDINE 20 MG TAB PO SCH (20:58)
[2022-11-15 21:00] VITALS: BP 163/86
[2022-11-16 05:18] VITALS: BP 154/96
[2022-11-16] MEDS: VANCOMYCIN ORAL SOL 250MG/5ML ORAL SYRINGE PO SCH ×4 (05:20→23:18)
[2022-11-16] MEDS: LevoFLOXacin 750 MG TABLET PO SCH (05:20)
[2022-11-16 06:39] LABS: BASO % 0.3 % (0.0-1.0); EOS # 0.2 10^3/uL (0.0-0.5); EOS % 1.4 % (0.0-3.0); HEMOGLOBIN 8.5 g/dl (13.5-17.5); LYMPH # 1.3 10^3/uL (1.5-5.0); LYMPH % 11.4 % (24.0-44.0); MEAN CORPUSCULAR HEMOGLOBIN 26.3 pg (27.0-33.0); MEAN CORPUSCULAR HGB CONC 31.5 g/dl (32.0-36.5); MEAN CORPUSCULAR VOLUME 83.6 fl (80.0-96.0); MONO # 1.2 10^3/uL (0.0-0.8); MONO % 10.2 % (2.0-8.0); NEUTROPHILS # 8.9 10^3/uL (1.5-8.5); PLATELET COUNT, AUTOMATED 574 10^3/uL (150-450); RED BLOOD COUNT 3.23 10^6/uL (4.30-6.10); WHITE BLOOD COUNT 11.8 10^3/uL (4.0-10.0)
[2022-11-16 07:03] LABS: ALBUMIN 1.8 G/DL (3.2-5.2); ALKALINE PHOSPHATASE 84 U/L (46-116); ALT/SGPT < 9 U/L (7.0-40); AST/SGOT 12 U/L (<34); BILIRUBIN,TOTAL 0.2 MG/DL (0.3-1.2); BLOOD UREA NITROGEN 6 MG/DL (9-23); CALCIUM LEVEL 7.5 MG/DL (8.3-10.6); CARBON DIOXIDE LEVEL 29 MMOL/L (20-31); CHLORIDE LEVEL 101 MMOL/L (98-107); CREATININE FOR GFR 0.87 MG/DL (0.70-1.30); GLOMERULAR FILTRATION RATE > 60.0 (>42); GLUCOSE, FASTING 70 MG/DL (74-106); MAGNESIUM LEVEL 1.7 MG/DL (1.8-2.4); POTASSIUM SERUM 3.2 MMOL/L (3.5-5.1); SODIUM LEVEL 136 MMOL/L (136-145); TOTAL PROTEIN 5.3 G/DL (5.7-8.2)
[2022-11-16] MEDS: TIOTROPIUM INHALER/CAPSULE (SPIRIVA) INH SCH (07:23)
[2022-11-16] MEDS: ADVAIR HFA 115/21MCG INHALER INH SCH ×2 (07:23→21:16)
[2022-11-16] MEDS ORDERED: MAGNESIUM OXIDE 400MG TAB (MAG-OX) PO ONE (08:30)
[2022-11-16] MEDS ORDERED: POTASSIUM CHLORIDE 10MEQ SR TABLET PO ONE (08:30)
[2022-11-16 09:37] VITALS: BP 160/89
[2022-11-16] MEDS: ENOXAPARIN 60MG/0.6ML SYRINGE (J1650 PER 10MG) SC SCH ×2 (09:39→20:34)
[2022-11-16] MEDS: LACTOBACILLUS ACIDOPHILUS CAP (BACID) PO SCH ×2 (09:39→18:32)
[2022-11-16] MEDS: FERROUS SULFATE 325MG TAB PO SCH ×2 (09:40→20:33)
[2022-11-16] MEDS: ASPIRIN 81MG ENTERIC TABLET PO SCH (09:40)
[2022-11-16] MEDS: ATORVASTATIN 20 MG TAB PO SCH (09:40)
[2022-11-16] MEDS: FUROSEMIDE 20 MG TAB PO SCH ×2 (09:40→18:32)
[2022-11-16] MEDS: LINEZOLID 600MG TABLET (ZYVOX) PO SCH ×2 (09:40→20:33)
[2022-11-16] MEDS: CARVedilol 6.25 MG TAB PO SCH ×2 (09:40→20:35)
[2022-11-16 14:00] VITALS: BP 155/86
[2022-11-16] MEDS: FAMOTIDINE 20 MG TAB PO SCH (20:33)
[2022-11-16 21:30] VITALS: BP 144/85
[2022-11-17] MEDS: LevoFLOXacin 750 MG TABLET PO SCH (05:39)
[2022-11-17] MEDS: VANCOMYCIN ORAL SOL 250MG/5ML ORAL SYRINGE PO SCH ×4 (05:39→23:01)
[2022-11-17 06:00] VITALS: BP 164/85
[2022-11-17 06:33] LABS: BASO % 0.2 % (0.0-1.0); EOS # 0.2 10^3/uL (0.0-0.5); EOS % 1.4 % (0.0-3.0); HEMATOCRIT 27.1 % (42.0-52.0); HEMOGLOBIN 8.5 g/dl (13.5-17.5); LYMPH # 1.2 10^3/uL (1.5-5.0); LYMPH % 11.2 % (24.0-44.0); MEAN CORPUSCULAR HEMOGLOBIN 26.3 pg (27.0-33.0); MEAN CORPUSCULAR HGB CONC 31.4 g/dl (32.0-36.5); MEAN CORPUSCULAR VOLUME 83.9 fl (80.0-96.0); MONO # 1.2 10^3/uL (0.0-0.8); MONO % 10.9 % (2.0-8.0); NEUTROPHILS # 8.3 10^3/uL (1.5-8.5); NEUTROPHILS % 75.5 % (36.0-66.0); PLATELET COUNT, AUTOMATED 550 10^3/uL (150-450); RED BLOOD COUNT 3.23 10^6/uL (4.30-6.10)
[2022-11-17 07:04] LABS: ALBUMIN 1.9 G/DL (3.2-5.2); ALKALINE PHOSPHATASE 87 U/L (46-116); ALT/SGPT < 9 U/L (7.0-40); AST/SGOT 15 U/L (<34); BILIRUBIN,TOTAL 0.2 MG/DL (0.3-1.2); BLOOD UREA NITROGEN 8 MG/DL (9-23); CALCIUM LEVEL 7.9 MG/DL (8.3-10.6); CARBON DIOXIDE LEVEL 32 MMOL/L (20-31); CHLORIDE LEVEL 99 MMOL/L (98-107); CREATININE FOR GFR 1.01 MG/DL (0.70-1.30); GLOMERULAR FILTRATION RATE > 60.0 (>42); GLUCOSE, FASTING 80 MG/DL (74-106); MAGNESIUM LEVEL 1.9 MG/DL (1.8-2.4); POTASSIUM SERUM 3.9 MMOL/L (3.5-5.1); SODIUM LEVEL 134 MMOL/L (136-145); TOTAL PROTEIN 5.4 G/DL (5.7-8.2)
[2022-11-17] MEDS: TIOTROPIUM INHALER/CAPSULE (SPIRIVA) INH SCH (07:43)
[2022-11-17] MEDS: ADVAIR HFA 115/21MCG INHALER INH SCH ×2 (07:43→21:01)
[2022-11-17] MEDS: ATORVASTATIN 20 MG TAB PO SCH (10:05)
[2022-11-17] MEDS: FERROUS SULFATE 325MG TAB PO SCH ×2 (10:05→20:07)
[2022-11-17] MEDS: ASPIRIN 81MG ENTERIC TABLET PO SCH (10:05)
[2022-11-17] MEDS: FUROSEMIDE 20 MG TAB PO SCH ×2 (10:05→18:19)
[2022-11-17] MEDS: ENOXAPARIN 60MG/0.6ML SYRINGE (J1650 PER 10MG) SC SCH ×2 (10:06→20:09)
[2022-11-17] MEDS: CARVedilol 6.25 MG TAB PO SCH ×2 (10:06→20:08)
[2022-11-17] MEDS: LINEZOLID 600MG TABLET (ZYVOX) PO SCH ×2 (10:06→20:07)
[2022-11-17] MEDS: LACTOBACILLUS ACIDOPHILUS CAP (BACID) PO SCH ×2 (10:08→18:19)
[2022-11-17 14:00] VITALS: BP 149/81
[2022-11-17 20:00] VITALS: BP 147/79
[2022-11-17] MEDS: FAMOTIDINE 20 MG TAB PO SCH (20:07)
[2022-11-17] MEDS: ACETAMINOPHEN TAB 650MG DOSE (2X325MG) PO PRN (23:01)
[2022-11-18] MEDS: LevoFLOXacin 750 MG TABLET PO SCH (05:34)
[2022-11-18] MEDS: VANCOMYCIN ORAL SOL 250MG/5ML ORAL SYRINGE PO SCH ×3 (05:36→18:13)
[2022-11-18 06:00] VITALS: BP 158/77
[2022-11-18 07:15] LABS: BASO % 0.3 % (0.0-1.0); EOS # 0.1 10^3/uL (0.0-0.5); EOS % 0.7 % (0.0-3.0); HEMATOCRIT 27.2 % (42.0-52.0); HEMOGLOBIN 8.6 g/dl (13.5-17.5); LYMPH # 1.3 10^3/uL (1.5-5.0); LYMPH % 13.4 % (24.0-44.0); MEAN CORPUSCULAR HEMOGLOBIN 26.6 pg (27.0-33.0); MEAN CORPUSCULAR HGB CONC 31.6 g/dl (32.0-36.5); MEAN CORPUSCULAR VOLUME 84.2 fl (80.0-96.0); MONO # 1.2 10^3/uL (0.0-0.8); MONO % 11.6 % (2.0-8.0); NEUTROPHILS # 7.3 10^3/uL (1.5-8.5); NEUTROPHILS % 73.3 % (36.0-66.0); PLATELET COUNT, AUTOMATED 544 10^3/uL (150-450); RED BLOOD COUNT 3.23 10^6/uL (4.30-6.10)
[2022-11-18 07:38] LABS: ALKALINE PHOSPHATASE 86 U/L (46-116); ALT/SGPT < 9 U/L (7.0-40); AST/SGOT 19 U/L (<34); BILIRUBIN,TOTAL 0.2 MG/DL (0.3-1.2); BLOOD UREA NITROGEN 6 MG/DL (9-23); CALCIUM LEVEL 7.7 MG/DL (8.3-10.6); CARBON DIOXIDE LEVEL 31 MMOL/L (20-31); CHLORIDE LEVEL 96 MMOL/L (98-107); CREATININE FOR GFR 1.06 MG/DL (0.70-1.30); GLOMERULAR FILTRATION RATE > 60.0 (>42); GLUCOSE, FASTING 82 MG/DL (74-106); MAGNESIUM LEVEL 1.8 MG/DL (1.8-2.4); POTASSIUM SERUM 3.7 MMOL/L (3.5-5.1); SODIUM LEVEL 133 MMOL/L (136-145); TOTAL PROTEIN 5.3 G/DL (5.7-8.2)
[2022-11-18] MEDS: TIOTROPIUM INHALER/CAPSULE (SPIRIVA) INH SCH (08:15)
[2022-11-18] MEDS: ADVAIR HFA 115/21MCG INHALER INH SCH ×2 (08:16→21:36)
[2022-11-18] MEDS: ENOXAPARIN 60MG/0.6ML SYRINGE (J1650 PER 10MG) SC SCH ×2 (10:18→21:33)
[2022-11-18] MEDS: ATORVASTATIN 20 MG TAB PO SCH (10:19)
[2022-11-18] MEDS: FUROSEMIDE 20 MG TAB PO SCH ×2 (10:19→18:13)
[2022-11-18] MEDS: LINEZOLID 600MG TABLET (ZYVOX) PO SCH (10:19)
[2022-11-18] MEDS: LACTOBACILLUS ACIDOPHILUS CAP (BACID) PO SCH ×2 (10:19→18:13)
[2022-11-18] MEDS: ASPIRIN 81MG ENTERIC TABLET PO SCH (10:20)
[2022-11-18] MEDS: CARVedilol 6.25 MG TAB PO SCH ×2 (10:20→21:34)
[2022-11-18] MEDS: FERROUS SULFATE 325MG TAB PO SCH ×2 (10:21→21:32)
[2022-11-18 14:00] VITALS: BP 139/82
[2022-11-18] MEDS: FAMOTIDINE 20 MG TAB PO SCH (21:32)
[2022-11-19] MEDS: VANCOMYCIN ORAL SOL 250MG/5ML ORAL SYRINGE PO SCH ×3 (01:02→12:26)
[2022-11-19 05:00] VITALS: BP 151/81
[2022-11-19 06:23] LABS: BASO % 0.2 % (0.0-1.0); EOS # 0.1 10^3/uL (0.0-0.5); EOS % 0.7 % (0.0-3.0); HEMOGLOBIN 8.3 g/dl (13.5-17.5); LYMPH # 1.3 10^3/uL (1.5-5.0); LYMPH % 13.7 % (24.0-44.0); MEAN CORPUSCULAR HGB CONC 30.7 g/dl (32.0-36.5); MEAN CORPUSCULAR VOLUME 84.6 fl (80.0-96.0); MONO # 1.1 10^3/uL (0.0-0.8); MONO % 11.3 % (2.0-8.0); NEUTROPHILS % 73.5 % (36.0-66.0); PLATELET COUNT, AUTOMATED 478 10^3/uL (150-450); RED BLOOD COUNT 3.19 10^6/uL (4.30-6.10); WHITE BLOOD COUNT 9.5 10^3/uL (4.0-10.0)
[2022-11-19 06:48] LABS: ALBUMIN 2.1 G/DL (3.2-5.2); ALKALINE PHOSPHATASE 83 U/L (46-116); ALT/SGPT < 9 U/L (7.0-40); AST/SGOT 13 U/L (<34); BILIRUBIN,TOTAL 0.3 MG/DL (0.3-1.2); BLOOD UREA NITROGEN 7 MG/DL (9-23); CALCIUM LEVEL 7.5 MG/DL (8.3-10.6); CARBON DIOXIDE LEVEL 33 MMOL/L (20-31); CHLORIDE LEVEL 95 MMOL/L (98-107); CREATININE FOR GFR 1.11 MG/DL (0.70-1.30); GLOMERULAR FILTRATION RATE > 60.0 (>42); GLUCOSE, FASTING 75 MG/DL (74-106); MAGNESIUM LEVEL 1.8 MG/DL (1.8-2.4); POTASSIUM SERUM 3.4 MMOL/L (3.5-5.1); SODIUM LEVEL 133 MMOL/L (136-145); TOTAL PROTEIN 5.2 G/DL (5.7-8.2)
[2022-11-19] MEDS ORDERED: POTASSIUM CHLORIDE 10MEQ SR TABLET PO ONE (08:00)
[2022-11-19] MEDS: TIOTROPIUM INHALER/CAPSULE (SPIRIVA) INH SCH (08:29)
[2022-11-19] MEDS: ADVAIR HFA 115/21MCG INHALER INH SCH (08:30)
[2022-11-19] MEDS: ATORVASTATIN 20 MG TAB PO SCH (09:55)
[2022-11-19] MEDS: LACTOBACILLUS ACIDOPHILUS CAP (BACID) PO SCH (09:56)
[2022-11-19] MEDS: FERROUS SULFATE 325MG TAB PO SCH (09:56)
[2022-11-19 09:57] VITALS: BP 133/71
[2022-11-19] MEDS: FUROSEMIDE 20 MG TAB PO SCH (09:57)
[2022-11-19] MEDS: CARVedilol 6.25 MG TAB PO SCH (09:57)
[2022-11-19] MEDS: ASPIRIN 81MG ENTERIC TABLET PO SCH (09:58)
[2022-11-19] MEDS: ENOXAPARIN 60MG/0.6ML SYRINGE (J1650 PER 10MG) SC SCH (09:58)
[2022-11-19] MEDS ORDERED: FAMO20TA PO (10:59)
[2022-11-19] MEDS ORDERED: TRAZ-257 PO (10:59)
[2022-11-19] MEDS ORDERED: RISATAB3 PO (10:59)
[2022-11-19] MEDS ORDERED: FIRV50SO PO (10:59)
[2022-11-19] MEDS ORDERED: FERR1TAB8 PO (10:59)
[2022-11-19] MEDS ORDERED: ADVA115A INH (10:59)
[2022-11-19] MEDS ORDERED: ASPI81TAEC PO (10:59)
[2022-11-19] MEDS ORDERED: TIOT18INH INH (10:59)
== END 2022-11-19 14:29 | DRG 475 ==
LOC: M ED 14:27 → EDBD 14:27 → M ED INP 16:00 → EEVIPCON 16:00 → ENRESERV 16:53 → M MSPAV 17:43
PROVIDERS: ADMIT Internal Medicine; ATTEND Family Medicine
PROC: X27 New Technology, Cardiovascular System, Dilation (ICD-10-PCS; 2022-11-12)
PROC: 04FN3ZZ Fragmentation of Left Popliteal Artery, Percutaneous Approach (ICD-10-PCS; 2022-11-12)
PROC: 04FU3ZZ Fragmentation of Left Peroneal Artery, Percutaneous Approach (ICD-10-PCS; 2022-11-12)
PROC: 04FL3ZZ Fragmentation of Left Femoral Artery, Percutaneous Approach (ICD-10-PCS; 2022-11-12)
PROC: 0Y6N0Z4 Detachment at Left Foot, Complete 1st Ray, Open Approach (ICD-10-PCS; principal; 2022-11-13 16:00)
PROC: 30233N1 Transfusion of Nonautologous Red Blood Cells into Peripheral Vein, Percutaneous Approach (ICD-10-PCS; 2022-11-14)
DX: M86.171 Other acute osteomyelitis, right ankle and foot (principal); J96.11 Chronic respiratory failure with hypoxia; L03.116 Cellulitis of left lower limb; N17.9 Acute kidney failure, unspecified; A04.72 Enterocolitis due to Clostridium difficile, not specified as recurrent; I73.9 Peripheral vascular disease, unspecified; J44.9 Chronic obstructive pulmonary disease, unspecified; I11.0 Hypertensive heart disease with heart failure; E78.5 Hyperlipidemia, unspecified; I48.91 Unspecified atrial fibrillation; B95.2 Enterococcus as the cause of diseases classified elsewhere; K21.9 Gastro-esophageal reflux disease without esophagitis; I50.9 Heart failure, unspecified; I77.1 Stricture of artery; Z66 Do not resuscitate; D63.8 Anemia in other chronic diseases classified elsewhere; G47.00 Insomnia, unspecified; Z20.822 Contact with and (suspected) exposure to COVID-19; Z89.511 Acquired absence of right leg below knee; Z79.01 Long term (current) use of anticoagulants; Z79.899 Other long term (current) drug therapy; Z87.891 Personal history of nicotine dependence; Z99.81 Dependence on supplemental oxygen

== ENCOUNTER 2022-11-20 18:48 | Emergency (ER) | payer MEDICARE, MEDICAID ==
[~2022-11-20] VITALS: Ht 170.2 cm; Wt 60.9 kg
[2022-11-20 19:29] LABS: BASO % 0.2 % (0.0-1.0); EOS # 0.1 10^3/uL (0.0-0.5); EOS % 0.4 % (0.0-3.0); HEMATOCRIT 27.5 % (42.0-52.0); HEMOGLOBIN 8.6 g/dl (13.5-17.5); LYMPH # 1.7 10^3/uL (1.5-5.0); MEAN CORPUSCULAR HEMOGLOBIN 26.7 pg (27.0-33.0); MEAN CORPUSCULAR HGB CONC 31.3 g/dl (32.0-36.5); MEAN CORPUSCULAR VOLUME 85.4 fl (80.0-96.0); MONO # 1.5 10^3/uL (0.0-0.8); NEUTROPHILS # 9.1 10^3/uL (1.5-8.5); NEUTROPHILS % 72.7 % (36.0-66.0); RED BLOOD COUNT 3.22 10^6/uL (4.30-6.10); WHITE BLOOD COUNT 12.5 10^3/uL (4.0-10.0)
[2022-11-20 19:32] LABS: PLATELET COUNT, AUTOMATED 613 10^3/uL (150-450)
[2022-11-20 19:44] LABS: BLOOD UREA NITROGEN 14 MG/DL (9-23); CALCIUM LEVEL 7.7 MG/DL (8.3-10.6); CARBON DIOXIDE LEVEL 31 MMOL/L (20-31); CHLORIDE LEVEL 100 MMOL/L (98-107); CREATININE FOR GFR 1.15 MG/DL (0.70-1.30); GLOMERULAR FILTRATION RATE > 60.0 (>42); GLUCOSE, FASTING 73 MG/DL (74-106); SODIUM LEVEL 135 MMOL/L (136-145)
[2022-11-20 21:00] VITALS: BP 133/61
== END 2022-11-20 21:21 | disposition home or self-care (01) ==
LOC: M ED 18:48 → EDBD 18:48 → M ED 21:21
DX: Z48.89 Encounter for other specified surgical aftercare (principal); I48.91 Unspecified atrial fibrillation; I10 Essential (primary) hypertension; I25.10 Atherosclerotic heart disease of native coronary artery without angina pectoris; J44.9 Chronic obstructive pulmonary disease, unspecified; R58 Hemorrhage, not elsewhere classified; Z99.81 Dependence on supplemental oxygen; Z89.511 Acquired absence of right leg below knee; Z79.01 Long term (current) use of anticoagulants

== ENCOUNTER → 2022-11-20 | Outpatient (REF) | payer MEDICARE, MEDICAID ==
[~2022-11-20] MED LIST changes: +ADVA115A INH; +AMLO2.5T3 PO; +ASPI81TAEC PO; +ATOR40TA75 PO; +BUSP15TA47 PO; +CARV6.25 PO; +ELIQ5TAB PO; +FAMO20TA PO; +FAMO40TA3 PO; +FERR1TAB8 PO; +FIRV50SO PO; +FLUT1BLS8 INH; +FURO20TA2 PO; -ISOVUE-300 61% 50ML VIAL As Ordered ONE; -LIDOCAINE 1% MDV 20ML VIAL As Ordered ONE; -MIDAZOLAM INJ 2MG/2ML VIAL (J2250 PER 1MG) As Ordered ONE; -NS 1,000 ML IV SCH; +POTA-151 PO; +RISATAB3 PO; +SANT250O8 TOP; +SERT25TA21 PO; +TIOT18INH INH; +TRAZ-252 PO; +TRAZ-257 PO; +VALS1TAB66 PO; -diphenhydrAMINE 50MG/ML VIAL As Ordered ONE; -fentaNYL 100 MCG/2 ML INJECTION As Ordered ONE
[2022-11-20 16:09] LABS: HEMATOCRIT 23.7 % (42.0-52.0); HEMOGLOBIN 7.4 g/dl (13.5-17.5); MEAN CORPUSCULAR HEMOGLOBIN 26.6 pg (27.0-33.0); MEAN CORPUSCULAR HGB CONC 31.2 g/dl (32.0-36.5); MEAN CORPUSCULAR VOLUME 85.3 fl (80.0-96.0); PLATELET COUNT, AUTOMATED 493 10^3/uL (150-450); RED BLOOD COUNT 2.78 10^6/uL (4.30-6.10); WHITE BLOOD COUNT 10.8 10^3/uL (4.0-10.0)
== END ==
LOC: SKLAB2 11:21
PROVIDERS: ATTEND Internal Medicine
DX: R58 Hemorrhage, not elsewhere classified (principal)

== ENCOUNTER → 2022-11-20 | Outpatient (REF) | payer MEDICARE, MEDICAID ==
[2022-11-20 10:38] LABS: BASO % 0.2 % (0.0-1.0); EOS # 0.1 10^3/uL (0.0-0.5); EOS % 0.5 % (0.0-3.0); HEMATOCRIT 25.6 % (42.0-52.0); HEMOGLOBIN 7.8 g/dl (13.5-17.5); LYMPH # 1.1 10^3/uL (1.5-5.0); LYMPH % 11.1 % (24.0-44.0); MEAN CORPUSCULAR HGB CONC 30.5 g/dl (32.0-36.5); MEAN CORPUSCULAR VOLUME 85.3 fl (80.0-96.0); MONO % 10.4 % (2.0-8.0); NEUTROPHILS # 7.6 10^3/uL (1.5-8.5); NEUTROPHILS % 76.9 % (36.0-66.0); PLATELET COUNT, AUTOMATED 552 10^3/uL (150-450); WHITE BLOOD COUNT 9.9 10^3/uL (4.0-10.0)
== END ==
LOC: SKLAB2 09:54
PROVIDERS: ATTEND Internal Medicine
DX: R58 Hemorrhage, not elsewhere classified (principal)

== ENCOUNTER → 2022-12-08 | Outpatient (REF) ==
[2022-12-08 14:08] LABS: CLOSTRIDIUM DIFFICILE PCR POSITIVE (NEGATIVE)
== END ==
LOC: SKLAB2 11:04
PROVIDERS: ATTEND Internal Medicine
DX: R19.5 Other fecal abnormalities (principal)

== ENCOUNTER 2022-12-20 15:22 | Inpatient (IN) | payer MEDICARE, MEDICAID ==
[~2022-12-20] VITALS: Ht 170.2 cm; Wt 64.5 kg
[2022-12-20 16:31] LABS: BASO % 0.3 % (0.0-1.0); EOS # 0.1 10^3/uL (0.0-0.5); EOS % 0.6 % (0.0-3.0); HEMATOCRIT 31.6 % (42.0-52.0); HEMOGLOBIN 9.4 g/dl (13.5-17.5); LYMPH # 1.6 10^3/uL (1.5-5.0); LYMPH % 11.8 % (24.0-44.0); MEAN CORPUSCULAR HEMOGLOBIN 25.4 pg (27.0-33.0); MEAN CORPUSCULAR HGB CONC 29.7 g/dl (32.0-36.5); MEAN CORPUSCULAR VOLUME 85.4 fl (80.0-96.0); MONO # 1.3 10^3/uL (0.0-0.8); MONO % 9.4 % (2.0-8.0); NEUTROPHILS # 10.3 10^3/uL (1.5-8.5); NEUTROPHILS % 77.3 % (36.0-66.0); PLATELET COUNT, AUTOMATED 603 10^3/uL (150-450); WHITE BLOOD COUNT 13.4 10^3/uL (4.0-10.0)
[2022-12-20 16:43] LABS: INR 1.18; PROTHROMBIN TIME 15.2 SECONDS (12.5-14.5)
[2022-12-20 16:44] LABS: PARTIAL THROMBOPLASTIN TIME 34.3 SECONDS (24.8-34.2)
[2022-12-20 16:57] LABS: ALBUMIN 2.6 G/DL (3.2-5.2); ALKALINE PHOSPHATASE 95 U/L (46-116); ALT/SGPT 21 U/L (7.0-40); AST/SGOT 21 U/L (<34); BILIRUBIN,DIRECT < 0.1 MG/DL (<0.4); BILIRUBIN,TOTAL 0.2 MG/DL (0.3-1.2); BLOOD UREA NITROGEN 21 MG/DL (9-23); CARBON DIOXIDE LEVEL 32 MMOL/L (20-31); CHLORIDE LEVEL 101 MMOL/L (98-107); CREATININE FOR GFR 1.17 MG/DL (0.70-1.30); GLOMERULAR FILTRATION RATE > 60.0 (>42); GLUCOSE, FASTING 94 MG/DL (74-106); POTASSIUM SERUM 5.1 MMOL/L (3.5-5.1); SODIUM LEVEL 138 MMOL/L (136-145)
[2022-12-20 17:04] LABS: ERYTHROCYTE SEDIMENTATION RATE 83 mm/hr (0-20)
[2022-12-20] MEDS ORDERED: PIPERACILLIN/TAZOBACTAM SOD 3.375 GM in D5W MINI-BAG PLUS 50 ML IV ONE (17:05)
[2022-12-20] MEDS ORDERED: NS 1,000 ML IV ONE (17:05)
[2022-12-20 17:35] LABS: RSV AMPLIFICATION NEGATIVE (NEGATIVE)
[2022-12-20] MEDS ORDERED: NS IV ONE (17:55)
[2022-12-20] MEDS ORDERED: PRAZ1CAP PO (18:48)
[2022-12-20] MEDS ORDERED: CITA40TA7 PO (18:48)
[2022-12-20] MEDS ORDERED: ALLO100T PO (18:48)
[2022-12-20] MEDS ORDERED: OMEP40CA5 PO (18:48)
[2022-12-20] MEDS ORDERED: LORA-243 PO (18:48)
[2022-12-20] MEDS ORDERED: LEVO100T5 PO (18:48)
[2022-12-20] MEDS ORDERED: ECOT81TA5 PO (18:48)
[2022-12-20] MEDS ORDERED: CALC1CAP31 PO (18:48)
[2022-12-20] MEDS ORDERED: ENTR1TAB PO (18:48)
[2022-12-20] MEDS ORDERED: SYMB16INH INH (18:48)
[2022-12-20] MEDS ORDERED: BUSP10TA PO (18:48)
[2022-12-20] MEDS ORDERED: FERR325T3 PO (18:48)
[2022-12-20] MEDS ORDERED: GABA-1171 PO (18:48)
[2022-12-20] MEDS ORDERED: FLEEENE12 PR (19:06)
[2022-12-20] MEDS ORDERED: INCR1INH INH (19:06)
[2022-12-20] MEDS ORDERED: MILKSUS3 PO (19:06)
[2022-12-20] MEDS ORDERED: AIRD1INH2 INH (19:06)
[2022-12-20] MEDS ORDERED: BENG1CRE TOP (19:06)
[2022-12-20] MEDS ORDERED: JUVEPOW4 PO (19:06)
[2022-12-20] MEDS ORDERED: BACI1CAP PO (19:06)
[2022-12-20] MEDS ORDERED: ENSULIQ51 PO (19:06)
[2022-12-20] MEDS ORDERED: VANC1CAP6 PO (19:06)
[2022-12-20] MEDS ORDERED: DULC10SU2 PR (19:06)
[2022-12-20] MEDS ORDERED: FAMO1TAB11 PO (19:06)
[2022-12-20] MEDS ORDERED: TRAZ-257 PO (19:06)
[2022-12-20] MEDS ORDERED: IPRA0.00 NEB (19:06)
[2022-12-20] MEDS ORDERED: ACET325C5 PO (19:22)
[2022-12-20] MEDS ORDERED: HOME MED LIST COMPLETE! XX SCH (19:25)
[2022-12-20] MEDS ORDERED: VANCOMYCIN HCL 750 MG, VIAL MATE ADAPTER 1 EACH in D5W 250 ML IV ONE (20:00)
[2022-12-20] MEDS: NS 1,000 ML IV SCH (20:05)
[2022-12-20] MEDS ORDERED: BISACODYL 10MG SUPP PR PRN (21:00)
[2022-12-20] MEDS ORDERED: FLEET ENEMA PR PRN (21:00)
[2022-12-20] MEDS ORDERED: VANCOMYCIN HCL 500 MG in D5W MINI-BAG PLUS 100 ML IV ONE (21:00)
[2022-12-20 21:30] VITALS: BP 172/76
[2022-12-20] MEDS: FAMOTIDINE 20 MG TAB PO SCH (22:27)
[2022-12-20] MEDS: busPIRone 5 MG TAB PO SCH (22:27)
[2022-12-20] MEDS: traZODone 100 MG TAB PO SCH (22:27)
[2022-12-20] MEDS: CARVedilol 6.25 MG TAB PO SCH (22:28)
[2022-12-20] MEDS: ENOXAPARIN 60MG/0.6ML SYRINGE (J1650 PER 10MG) SC SCH (22:29)
[2022-12-20] MEDS: VANCOMYCIN ORAL SOL 250MG/5ML ORAL SYRINGE PO SCH (22:29)
[2022-12-21] MEDS: PIPERACILLIN/TAZOBACTAM SOD 3.375 GM in D5W MINI-BAG PLUS 50 ML IV SCH ×4 (00:52→18:14)
[2022-12-21] MEDS: VANCOMYCIN HCL 1,000 MG, VIAL MATE ADAPTER 1 EACH in D5W 250 ML IV SCH ×2 (03:47→16:15)
[2022-12-21] MEDS: NS 1,000 ML IV SCH (05:36)
[2022-12-21 06:00] VITALS: BP 166/74
[2022-12-21 07:01] LABS: HEMOGLOBIN 9.2 g/dl (13.5-17.5); MEAN CORPUSCULAR HEMOGLOBIN 26.1 pg (27.0-33.0); MEAN CORPUSCULAR HGB CONC 30.7 g/dl (32.0-36.5); MEAN CORPUSCULAR VOLUME 85.2 fl (80.0-96.0); PLATELET COUNT, AUTOMATED 506 10^3/uL (150-450); RED BLOOD COUNT 3.52 10^6/uL (4.30-6.10); WHITE BLOOD COUNT 13.6 10^3/uL (4.0-10.0)
[2022-12-21 07:21] LABS: ALBUMIN 2.2 G/DL (3.2-5.2); ALKALINE PHOSPHATASE 76 U/L (46-116); ALT/SGPT 17 U/L (7.0-40); AST/SGOT 24 U/L (<34); BILIRUBIN,TOTAL 0.2 MG/DL (0.3-1.2); BLOOD UREA NITROGEN 17 MG/DL (9-23); CALCIUM LEVEL 7.7 MG/DL (8.3-10.6); CARBON DIOXIDE LEVEL 28 MMOL/L (20-31); CHLORIDE LEVEL 102 MMOL/L (98-107); CREATININE FOR GFR 1.09 MG/DL (0.70-1.30); GLOMERULAR FILTRATION RATE > 60.0 (>42); GLUCOSE, FASTING 90 MG/DL (74-106); POTASSIUM SERUM 3.9 MMOL/L (3.5-5.1); SODIUM LEVEL 137 MMOL/L (136-145); TOTAL PROTEIN 5.2 G/DL (5.7-8.2)
[2022-12-21] MEDS: ADVAIR HFA 115/21MCG INHALER INH SCH ×2 (08:09→19:43)
[2022-12-21] MEDS: TIOTROPIUM INHALER/CAPSULE (SPIRIVA) INH SCH (08:09)
[2022-12-21 08:12] VITALS: O2SAT 98
[2022-12-21] MEDS: POTASSIUM CHLORIDE 10MEQ SR TABLET PO SCH (08:16)
[2022-12-21] MEDS: ASPIRIN 81MG ENTERIC TABLET PO SCH (08:16)
[2022-12-21] MEDS: LACTOBACILLUS ACIDOPHILUS CAP (BACID) PO SCH ×2 (08:16→16:20)
[2022-12-21] MEDS: ATORVASTATIN 20 MG TAB PO SCH (08:17)
[2022-12-21] MEDS: SERTRALINE HCL 25 MG TABLET PO SCH (08:17)
[2022-12-21] MEDS: busPIRone 5 MG TAB PO SCH ×3 (08:17→21:42)
[2022-12-21] MEDS: FERROUS SULFATE 325MG TAB PO SCH (08:17)
[2022-12-21] MEDS: CARVedilol 6.25 MG TAB PO SCH (08:18)
[2022-12-21] MEDS: ENOXAPARIN 60MG/0.6ML SYRINGE (J1650 PER 10MG) SC SCH ×2 (08:19→21:43)
[2022-12-21] MEDS: VANCOMYCIN ORAL SOL 250MG/5ML ORAL SYRINGE PO SCH ×3 (08:19→21:43)
[2022-12-21] MEDS: FUROSEMIDE 20 MG TAB PO SCH ×2 (08:19→16:20)
[2022-12-21] MEDS ORDERED: CARVedilol 6.25 MG TAB PO ONE (13:15)
[2022-12-21 14:00] VITALS: BP 113/54
[2022-12-21] MEDS: CARVedilol 12.5 MG TAB PO SCH (21:42)
[2022-12-21] MEDS: FAMOTIDINE 20 MG TAB PO SCH (21:43)
[2022-12-21] MEDS: traZODone 100 MG TAB PO SCH (21:43)
[2022-12-21 22:00] VITALS: BP 124/59
[2022-12-22] MEDS: PIPERACILLIN/TAZOBACTAM SOD 3.375 GM in D5W MINI-BAG PLUS 50 ML IV SCH ×4 (00:16→17:32)
[2022-12-22] MEDS: VANCOMYCIN HCL 1,000 MG, VIAL MATE ADAPTER 1 EACH in D5W 250 ML IV SCH (04:28)
[2022-12-22 05:51] LABS: HEMATOCRIT 28.5 % (42.0-52.0); HEMOGLOBIN 8.6 g/dl (13.5-17.5); MEAN CORPUSCULAR HEMOGLOBIN 25.7 pg (27.0-33.0); MEAN CORPUSCULAR HGB CONC 30.2 g/dl (32.0-36.5); MEAN CORPUSCULAR VOLUME 85.3 fl (80.0-96.0); PLATELET COUNT, AUTOMATED 491 10^3/uL (150-450); RED BLOOD COUNT 3.34 10^6/uL (4.30-6.10); WHITE BLOOD COUNT 9.7 10^3/uL (4.0-10.0)
[2022-12-22 06:00] VITALS: BP 145/65
[2022-12-22 06:16] LABS: ALBUMIN 2.2 G/DL (3.2-5.2); ALKALINE PHOSPHATASE 73 U/L (46-116); ALT/SGPT 12 U/L (7.0-40); AST/SGOT 13 U/L (<34); BILIRUBIN,TOTAL 0.2 MG/DL (0.3-1.2); BLOOD UREA NITROGEN 16 MG/DL (9-23); CALCIUM LEVEL 7.5 MG/DL (8.3-10.6); CARBON DIOXIDE LEVEL 32 MMOL/L (20-31); CHLORIDE LEVEL 103 MMOL/L (98-107); CREATININE FOR GFR 1.08 MG/DL (0.70-1.30); GLOMERULAR FILTRATION RATE > 60.0 (>42); GLUCOSE, FASTING 86 MG/DL (74-106); POTASSIUM SERUM 3.5 MMOL/L (3.5-5.1); SODIUM LEVEL 139 MMOL/L (136-145); TOTAL PROTEIN 5.2 G/DL (5.7-8.2)
[2022-12-22] MEDS: TIOTROPIUM INHALER/CAPSULE (SPIRIVA) INH SCH (08:30)
[2022-12-22] MEDS: ADVAIR HFA 115/21MCG INHALER INH SCH ×2 (08:31→19:43)
[2022-12-22 08:32] VITALS: O2SAT 99
[2022-12-22] MEDS: busPIRone 5 MG TAB PO SCH ×3 (08:59→21:12)
[2022-12-22] MEDS: LACTOBACILLUS ACIDOPHILUS CAP (BACID) PO SCH ×2 (08:59→17:19)
[2022-12-22] MEDS: CARVedilol 12.5 MG TAB PO SCH ×2 (09:00→21:13)
[2022-12-22] MEDS: ASPIRIN 81MG ENTERIC TABLET PO SCH (09:00)
[2022-12-22] MEDS: FUROSEMIDE 20 MG TAB PO SCH ×2 (09:00→16:09)
[2022-12-22] MEDS: SERTRALINE HCL 25 MG TABLET PO SCH (09:00)
[2022-12-22] MEDS: ATORVASTATIN 20 MG TAB PO SCH (09:01)
[2022-12-22] MEDS: POTASSIUM CHLORIDE 10MEQ SR TABLET PO SCH (09:01)
[2022-12-22] MEDS: FERROUS SULFATE 325MG TAB PO SCH (09:02)
[2022-12-22] MEDS: VANCOMYCIN ORAL SOL 250MG/5ML ORAL SYRINGE PO SCH ×4 (09:02→21:14)
[2022-12-22 15:23] LABS: CK-MB VALUE MASS < 1.0 NG/ML (<3.6)
[2022-12-22 15:26] LABS: CPK CREATINE PHOSPHOKINASE 27 U/L (46-171)
[2022-12-22] MEDS: FAMOTIDINE 20 MG TAB PO SCH (21:12)
[2022-12-22] MEDS: traZODone 100 MG TAB PO SCH (21:12)
[2022-12-22 21:30] VITALS: BP 140/64
[2022-12-22 22:00] VITALS: BP 140/69
[2022-12-23] MEDS: PIPERACILLIN/TAZOBACTAM SOD 3.375 GM in D5W MINI-BAG PLUS 50 ML IV SCH ×4 (01:09→17:51)
[2022-12-23 05:38] VITALS: BP 150/88
[2022-12-23 06:28] LABS: HEMATOCRIT 29.3 % (42.0-52.0); HEMOGLOBIN 8.8 g/dl (13.5-17.5); MEAN CORPUSCULAR HEMOGLOBIN 25.6 pg (27.0-33.0); MEAN CORPUSCULAR VOLUME 85.2 fl (80.0-96.0); PLATELET COUNT, AUTOMATED 494 10^3/uL (150-450); RED BLOOD COUNT 3.44 10^6/uL (4.30-6.10)
[2022-12-23 06:52] LABS: ERYTHROCYTE SEDIMENTATION RATE 68 mm/hr (0-20)
[2022-12-23 06:53] LABS: VANCOMYCIN RANDOM 17.6 UG/ML
[2022-12-23 06:59] LABS: ALBUMIN 2.5 G/DL (3.2-5.2); ALKALINE PHOSPHATASE 72 U/L (46-116); ALT/SGPT 13 U/L (7.0-40); AST/SGOT 16 U/L (<34); BILIRUBIN,TOTAL 0.2 MG/DL (0.3-1.2); BLOOD UREA NITROGEN 15 MG/DL (9-23); CARBON DIOXIDE LEVEL 32 MMOL/L (20-31); CHLORIDE LEVEL 101 MMOL/L (98-107); CREATININE FOR GFR 1.03 MG/DL (0.70-1.30); GLOMERULAR FILTRATION RATE > 60.0 (>42); GLUCOSE, FASTING 85 MG/DL (74-106); POTASSIUM SERUM 3.6 MMOL/L (3.5-5.1); SODIUM LEVEL 137 MMOL/L (136-145); TOTAL PROTEIN 5.6 G/DL (5.7-8.2)
[2022-12-23] MEDS ORDERED: VANCOMYCIN HCL 750 MG, VIAL MATE ADAPTER 1 EACH in D5W 250 ML IV SCH (07:00)
[2022-12-23] MEDS ORDERED: LIDOCAINE 1% MDV 20ML VIAL As Ordered ONE (07:06)
[2022-12-23] MEDS ORDERED: LIDOCAINE 1% MDV 20ML VIAL INFIL ONE (07:10)
[2022-12-23] MEDS ORDERED: VANCOMYCIN HCL 500 MG in D5W MINI-BAG PLUS 100 ML IV SCH (08:00)
[2022-12-23] MEDS: FUROSEMIDE 20 MG TAB PO SCH ×2 (08:11→17:48)
[2022-12-23] MEDS: VANCOMYCIN ORAL SOL 250MG/5ML ORAL SYRINGE PO SCH ×4 (08:11→20:30)
[2022-12-23] MEDS: busPIRone 5 MG TAB PO SCH ×3 (08:12→20:31)
[2022-12-23] MEDS: ATORVASTATIN 20 MG TAB PO SCH (08:12)
[2022-12-23] MEDS: LACTOBACILLUS ACIDOPHILUS CAP (BACID) PO SCH ×2 (08:12→17:48)
[2022-12-23] MEDS: FERROUS SULFATE 325MG TAB PO SCH (08:12)
[2022-12-23] MEDS: SERTRALINE HCL 25 MG TABLET PO SCH (08:12)
[2022-12-23] MEDS: POTASSIUM CHLORIDE 10MEQ SR TABLET PO SCH (08:12)
[2022-12-23] MEDS: ACETAMINOPHEN TAB 650MG DOSE (2X325MG) PO PRN ×2 (08:13→20:31)
[2022-12-23] MEDS: CARVedilol 12.5 MG TAB PO SCH ×2 (08:15→20:31)
[2022-12-23] MEDS: ASPIRIN 81MG ENTERIC TABLET PO SCH (08:19)
[2022-12-23] MEDS: TIOTROPIUM INHALER/CAPSULE (SPIRIVA) INH SCH (08:37)
[2022-12-23] MEDS: ADVAIR HFA 115/21MCG INHALER INH SCH ×2 (08:38→20:44)
[2022-12-23 08:39] VITALS: O2SAT 99
[2022-12-23 14:00] VITALS: BP 126/64
[2022-12-23 20:20] VITALS: BP 145/84
[2022-12-23] MEDS: FAMOTIDINE 20 MG TAB PO SCH (20:31)
[2022-12-23] MEDS: traZODone 100 MG TAB PO SCH (20:32)
[2022-12-24] MEDS: PIPERACILLIN/TAZOBACTAM SOD 3.375 GM in D5W MINI-BAG PLUS 50 ML IV SCH ×5 (00:55→23:50)
[2022-12-24] MEDS: ACETAMINOPHEN TAB 650MG DOSE (2X325MG) PO PRN ×2 (05:46→17:54)
[2022-12-24 05:47] VITALS: BP 171/88
[2022-12-24 06:05] LABS: HEMATOCRIT 29.9 % (42.0-52.0); HEMOGLOBIN 9.1 g/dl (13.5-17.5); MEAN CORPUSCULAR HEMOGLOBIN 25.6 pg (27.0-33.0); MEAN CORPUSCULAR HGB CONC 30.4 g/dl (32.0-36.5); MEAN CORPUSCULAR VOLUME 84.2 fl (80.0-96.0); PLATELET COUNT, AUTOMATED 447 10^3/uL (150-450); RED BLOOD COUNT 3.55 10^6/uL (4.30-6.10); WHITE BLOOD COUNT 8.4 10^3/uL (4.0-10.0)
[2022-12-24] MEDS: ADVAIR HFA 115/21MCG INHALER INH SCH ×2 (06:21→19:30)
[2022-12-24] MEDS: TIOTROPIUM INHALER/CAPSULE (SPIRIVA) INH SCH (06:21)
[2022-12-24 06:56] LABS: ALBUMIN 2.7 G/DL (3.2-5.2); ALKALINE PHOSPHATASE 75 U/L (46-116); ALT/SGPT 13 U/L (7.0-40); AST/SGOT 16 U/L (<34); BILIRUBIN,TOTAL 0.2 MG/DL (0.3-1.2); BLOOD UREA NITROGEN 12 MG/DL (9-23); CALCIUM LEVEL 8.5 MG/DL (8.3-10.6); CARBON DIOXIDE LEVEL 30 MMOL/L (20-31); CHLORIDE LEVEL 102 MMOL/L (98-107); GLOMERULAR FILTRATION RATE > 60.0 (>42); GLUCOSE, FASTING 80 MG/DL (74-106); POTASSIUM SERUM 4.2 MMOL/L (3.5-5.1); SODIUM LEVEL 137 MMOL/L (136-145); TOTAL PROTEIN 5.9 G/DL (5.7-8.2)
[2022-12-24] MEDS: ATORVASTATIN 20 MG TAB PO SCH (09:14)
[2022-12-24] MEDS: busPIRone 5 MG TAB PO SCH ×3 (09:14→20:21)
[2022-12-24] MEDS: ASPIRIN 81MG ENTERIC TABLET PO SCH (09:14)
[2022-12-24] MEDS: POTASSIUM CHLORIDE 10MEQ SR TABLET PO SCH (09:15)
[2022-12-24] MEDS: FUROSEMIDE 20 MG TAB PO SCH ×2 (09:15→17:34)
[2022-12-24] MEDS: LACTOBACILLUS ACIDOPHILUS CAP (BACID) PO SCH ×2 (09:15→17:28)
[2022-12-24] MEDS: CARVedilol 12.5 MG TAB PO SCH (09:16)
[2022-12-24] MEDS: FERROUS SULFATE 325MG TAB PO SCH (09:16)
[2022-12-24] MEDS: VANCOMYCIN ORAL SOL 250MG/5ML ORAL SYRINGE PO SCH ×4 (09:16→20:23)
[2022-12-24] MEDS: SERTRALINE HCL 25 MG TABLET PO SCH (09:16)
[2022-12-24] MEDS ORDERED: CARVedilol 12.5 MG TAB PO ONE (11:00)
[2022-12-24] MEDS: ENOXAPARIN 60MG/0.6ML SYRINGE (J1650 PER 10MG) SC SCH ×2 (11:17→20:23)
[2022-12-24 14:00] VITALS: BP 133/64
[2022-12-24 20:07] VITALS: BP 134/70
[2022-12-24] MEDS: traZODone 100 MG TAB PO SCH (20:21)
[2022-12-24] MEDS: FAMOTIDINE 20 MG TAB PO SCH (20:22)
[2022-12-24] MEDS ORDERED: CARVedilol 12.5 MG TAB PO SCH (21:00)
[2022-12-25 04:16] VITALS: BP 134/72
[2022-12-25] MEDS: PIPERACILLIN/TAZOBACTAM SOD 3.375 GM in D5W MINI-BAG PLUS 50 ML IV SCH (05:51)
[2022-12-25 06:51] LABS: VANCOMYCIN RANDOM 13.6 UG/ML
[2022-12-25] MEDS: ADVAIR HFA 115/21MCG INHALER INH SCH (07:21)
[2022-12-25] MEDS: TIOTROPIUM INHALER/CAPSULE (SPIRIVA) INH SCH (07:21)
[2022-12-25 07:33] LABS: ALBUMIN 2.4 G/DL (3.2-5.2); ALKALINE PHOSPHATASE 70 U/L (46-116); ALT/SGPT 12 U/L (7.0-40); AST/SGOT 17 U/L (<34); BILIRUBIN,TOTAL 0.2 MG/DL (0.3-1.2); BLOOD UREA NITROGEN 11 MG/DL (9-23); CALCIUM LEVEL 7.9 MG/DL (8.3-10.6); CARBON DIOXIDE LEVEL 32 MMOL/L (20-31); CHLORIDE LEVEL 103 MMOL/L (98-107); CREATININE FOR GFR 1.11 MG/DL (0.70-1.30); GLOMERULAR FILTRATION RATE > 60.0 (>42); GLUCOSE, FASTING 84 MG/DL (74-106); SODIUM LEVEL 140 MMOL/L (136-145); TOTAL PROTEIN 5.4 G/DL (5.7-8.2)
[2022-12-25] MEDS ORDERED: VANCOMYCIN HCL 1,000 MG, VIAL MATE ADAPTER 1 EACH in D5W 250 ML IV SCH (08:00)
[2022-12-25] MEDS ORDERED: CARVedilol 12.5 MG TAB PO SCH (09:00)
[2022-12-25] MEDS: ATORVASTATIN 20 MG TAB PO SCH (09:40)
[2022-12-25] MEDS: LACTOBACILLUS ACIDOPHILUS CAP (BACID) PO SCH (09:40)
[2022-12-25] MEDS: SERTRALINE HCL 25 MG TABLET PO SCH (09:40)
[2022-12-25] MEDS: POTASSIUM CHLORIDE 10MEQ SR TABLET PO SCH (09:40)
[2022-12-25] MEDS: busPIRone 5 MG TAB PO SCH (09:41)
[2022-12-25] MEDS: VANCOMYCIN ORAL SOL 250MG/5ML ORAL SYRINGE PO SCH ×2 (09:41→12:12)
[2022-12-25] MEDS: ASPIRIN 81MG ENTERIC TABLET PO SCH (09:41)
[2022-12-25] MEDS: FUROSEMIDE 20 MG TAB PO SCH (09:41)
[2022-12-25] MEDS: FERROUS SULFATE 325MG TAB PO SCH (09:41)
[2022-12-25 09:42] VITALS: BP 132/58
[2022-12-25] MEDS: ACETAMINOPHEN TAB 650MG DOSE (2X325MG) PO PRN (09:43)
[2022-12-25] MEDS: ENOXAPARIN 60MG/0.6ML SYRINGE (J1650 PER 10MG) SC SCH (09:45)
[2022-12-25] MEDS ORDERED: VANC1CAP6 PO (11:58)
== END 2022-12-25 13:30 | DRG 504 ==
LOC: M ED 15:22 → M ED INP 18:37 → M MS5PR 21:15
PROVIDERS: ADMIT Internal Medicine; ATTEND General Practice
PROC: 0Y6S0Z1 Detachment at Left 2nd Toe, High, Open Approach (ICD-10-PCS; principal; 2022-12-23)
DX: M86.8X7 Other osteomyelitis, ankle and foot (principal); J96.11 Chronic respiratory failure with hypoxia; I50.32 Chronic diastolic (congestive) heart failure; L97.529 Non-pressure chronic ulcer of other part of left foot with unspecified severity; J44.9 Chronic obstructive pulmonary disease, unspecified; I11.0 Hypertensive heart disease with heart failure; E78.5 Hyperlipidemia, unspecified; I73.9 Peripheral vascular disease, unspecified; I48.91 Unspecified atrial fibrillation; G47.00 Insomnia, unspecified; K21.9 Gastro-esophageal reflux disease without esophagitis; Z89.511 Acquired absence of right leg below knee; Z89.412 Acquired absence of left great toe; Z99.81 Dependence on supplemental oxygen; Z87.891 Personal history of nicotine dependence; Z79.01 Long term (current) use of anticoagulants; Z79.82 Long term (current) use of aspirin; Z79.2 Long term (current) use of antibiotics; Z79.899 Other long term (current) drug therapy

== ENCOUNTER → 2023-01-02 | Outpatient (REF) | payer MEDICARE, MEDICAID ==
[~2023-01-02] MED LIST changes: +ACET325C5 PO; +AIRD1INH2 INH; +ALLO100T PO; +BACI1CAP PO; +BENG1CRE TOP; +BUSP10TA PO; +CALC1CAP31 PO; +CITA40TA7 PO; +DULC10SU2 PR; +ECOT81TA5 PO; +ENSULIQ51 PO; +ENTR1TAB PO; +FAMO1TAB11 PO; +FERR325T3 PO; +FLEEENE12 PR; +GABA-1171 PO; +INCR1INH INH; +IPRA0.00 NEB; +JUVEPOW4 PO; +LEVO100T5 PO; +LORA-243 PO; +MILKSUS3 PO; +OMEP40CA5 PO; +PRAZ1CAP PO; +SYMB16INH INH; +VANC1CAP6 PO
[2023-01-02 12:16] LABS: HEMATOCRIT 31.1 % (42.0-52.0); HEMOGLOBIN 9.5 g/dl (13.5-17.5); MEAN CORPUSCULAR HEMOGLOBIN 25.7 pg (27.0-33.0); MEAN CORPUSCULAR HGB CONC 30.5 g/dl (32.0-36.5); MEAN CORPUSCULAR VOLUME 84.3 fl (80.0-96.0); PLATELET COUNT, AUTOMATED 474 10^3/uL (150-450); RED BLOOD COUNT 3.69 10^6/uL (4.30-6.10); WHITE BLOOD COUNT 11.9 10^3/uL (4.0-10.0)
== END ==
LOC: SKLAB2 11:03
PROVIDERS: ATTEND Internal Medicine
DX: Z47.81 Encounter for orthopedic aftercare following surgical amputation (principal); Z89.412 Acquired absence of left great toe; Z79.899 Other long term (current) drug therapy

== ENCOUNTER → 2023-01-06 | Outpatient (CLI) | payer MEDICARE, MEDICAID | LOC: M RAD 12:20 | PROVIDERS: ATTEND Surgery Vascular Surgery | DX: I73.9 Peripheral vascular disease, unspecified (principal); I70.202 Unspecified atherosclerosis of native arteries of extremities, left leg ==

== ENCOUNTER → 2023-01-09 | Outpatient (REF) | payer MEDICARE, MEDICAID ==
[2023-01-09 08:00] LABS: HEMATOCRIT 30.2 % (42.0-52.0); HEMOGLOBIN 9.1 g/dl (13.5-17.5); MEAN CORPUSCULAR HEMOGLOBIN 25.1 pg (27.0-33.0); MEAN CORPUSCULAR HGB CONC 30.1 g/dl (32.0-36.5); MEAN CORPUSCULAR VOLUME 83.4 fl (80.0-96.0); PLATELET COUNT, AUTOMATED 457 10^3/uL (150-450); RED BLOOD COUNT 3.62 10^6/uL (4.30-6.10); WHITE BLOOD COUNT 10.5 10^3/uL (4.0-10.0)
== END ==
LOC: SKLAB2 07:00
PROVIDERS: ATTEND Internal Medicine
DX: M86.672 Other chronic osteomyelitis, left ankle and foot (principal); D62 Acute posthemorrhagic anemia

== ENCOUNTER → 2023-01-16 | Outpatient (REF) | payer MEDICARE, MEDICAID ==
[2023-01-16 09:57] LABS: HEMATOCRIT 31.4 % (42.0-52.0); HEMOGLOBIN 9.8 g/dl (13.5-17.5); MEAN CORPUSCULAR HEMOGLOBIN 26.3 pg (27.0-33.0); MEAN CORPUSCULAR HGB CONC 31.2 g/dl (32.0-36.5); MEAN CORPUSCULAR VOLUME 84.4 fl (80.0-96.0); PLATELET COUNT, AUTOMATED 530 10^3/uL (150-450); RED BLOOD COUNT 3.72 10^6/uL (4.30-6.10); WHITE BLOOD COUNT 9.8 10^3/uL (4.0-10.0)
== END ==
LOC: SKLAB2 07:00
PROVIDERS: ATTEND Internal Medicine
DX: M86.672 Other chronic osteomyelitis, left ankle and foot (principal); D62 Acute posthemorrhagic anemia

== ENCOUNTER → 2023-01-24 | Outpatient (REF) | payer MEDICARE, MEDICAID ==
[2023-01-24 06:55] LABS: HEMATOCRIT 31.5 % (42.0-52.0); HEMOGLOBIN 9.6 g/dl (13.5-17.5); MEAN CORPUSCULAR HEMOGLOBIN 25.7 pg (27.0-33.0); MEAN CORPUSCULAR HGB CONC 30.5 g/dl (32.0-36.5); MEAN CORPUSCULAR VOLUME 84.5 fl (80.0-96.0); PLATELET COUNT, AUTOMATED 425 10^3/uL (150-450); RED BLOOD COUNT 3.73 10^6/uL (4.30-6.10)
== END ==
LOC: SKLAB2 01-23 13:50
PROVIDERS: ATTEND Internal Medicine
DX: M86.672 Other chronic osteomyelitis, left ankle and foot (principal); D62 Acute posthemorrhagic anemia

== ENCOUNTER → 2023-01-30 | Outpatient (REF) | payer MEDICARE, MEDICAID ==
[2023-01-30 06:29] LABS: HEMATOCRIT 34.7 % (42.0-52.0); HEMOGLOBIN 10.5 g/dl (13.5-17.5); MEAN CORPUSCULAR HEMOGLOBIN 25.2 pg (27.0-33.0); MEAN CORPUSCULAR HGB CONC 30.3 g/dl (32.0-36.5); MEAN CORPUSCULAR VOLUME 83.4 fl (80.0-96.0); PLATELET COUNT, AUTOMATED 424 10^3/uL (150-450); RED BLOOD COUNT 4.16 10^6/uL (4.30-6.10); WHITE BLOOD COUNT 13.9 10^3/uL (4.0-10.0)
== END ==
LOC: SKLAB2 07:00
PROVIDERS: ATTEND Internal Medicine
DX: M86.672 Other chronic osteomyelitis, left ankle and foot (principal); D62 Acute posthemorrhagic anemia

== ENCOUNTER → 2023-03-06 | Outpatient (REF) | payer MEDICARE, MEDICAID ==
[2023-03-06 10:54] LABS: HEMATOCRIT 33.6 % (42.0-52.0); HEMOGLOBIN 10.6 g/dl (13.5-17.5); MEAN CORPUSCULAR HEMOGLOBIN 25.5 pg (27.0-33.0); MEAN CORPUSCULAR HGB CONC 31.5 g/dl (32.0-36.5); MEAN CORPUSCULAR VOLUME 80.8 fl (80.0-96.0); PLATELET COUNT, AUTOMATED 419 10^3/uL (150-450); RED BLOOD COUNT 4.16 10^6/uL (4.30-6.10); WHITE BLOOD COUNT 9.2 10^3/uL (4.0-10.0)
[2023-03-06 11:21] LABS: BLOOD UREA NITROGEN 12 MG/DL (9-23); CALCIUM LEVEL 8.4 MG/DL (8.3-10.6); CARBON DIOXIDE LEVEL 32 MMOL/L (20-31); CHLORIDE LEVEL 99 MMOL/L (98-107); CHOLESTEROL LEVEL 135 MG/DL (<200); CHOLESTEROL RISK RATIO 4.67 (<5); CREATININE FOR GFR 1.09 MG/DL (0.70-1.30); GLOMERULAR FILTRATION RATE > 60.0 (>42); GLUCOSE, FASTING 87 MG/DL (74-106); HDL CHOLESTEROL 28.9 MG/DL (>40); LDL CHOLESTEROL 80.9 MG/DL (<100); NON-HDL-C 106.1 MG/DL; POTASSIUM SERUM 4.1 MMOL/L (3.5-5.1); SODIUM LEVEL 138 MMOL/L (136-145); TRIGLYCERIDES LEVEL 126 MG/DL (<150)
== END ==
LOC: SKLAB2 10:15
PROVIDERS: ATTEND Internal Medicine
DX: I10 Essential (primary) hypertension (principal); E78.5 Hyperlipidemia, unspecified

== ENCOUNTER → 2023-03-12 | Outpatient (CLI) | payer MEDICARE, MEDICAID | LOC: M RAD 11:43 | PROVIDERS: ATTEND Internal Medicine | DX: I73.9 Peripheral vascular disease, unspecified (principal) ==

== ENCOUNTER 2023-05-16 14:23 | Day surgery (SDC) | payer MEDICARE, MEDICAID ==
[2023-05-16] MEDS ORDERED: LIDOCAINE 2% MDV 20ML VIAL As Ordered ONE (17:59)
[2023-05-16] MEDS ORDERED: LIDOCAINE 2% 100MG/5ML SDV (FOR ANES.) As Ordered ONE (18:01)
[2023-05-16] MEDS ORDERED: ONDANSETRON 4MG 2ML VIAL As Ordered ONE (18:01)
[2023-05-16] MEDS ORDERED: propofoL 200 MG/20 ML VIAL As Ordered ONE (18:01)
[2023-05-16] MEDS ORDERED: fentaNYL 100 MCG/2 ML INJECTION As Ordered ONE (18:04)
[2023-05-16] MEDS ORDERED: GENTAMICIN SULF 80MG/2ML VIAL As Ordered ONE (19:05)
[2023-05-16 20:00] VITALS: BP 143/84; TEMP 97.9; O2SAT 94
== END 2023-05-16 20:05 | disposition home or self-care (01) ==
LOC: M SDC 14:23
PROVIDERS: ATTEND Podiatrist
DX: M87.078 Idiopathic aseptic necrosis of left toe(s) (principal); I10 Essential (primary) hypertension; I48.91 Unspecified atrial fibrillation; H44.9 Unspecified disorder of globe; Z86.73 Personal history of transient ischemic attack (TIA), and cerebral infarction without residual deficits; Z79.899 Other long term (current) drug therapy; Z79.01 Long term (current) use of anticoagulants
CPT/HCPCS: 28820; 73620; 87070; 87075; 87077; 87186; 87205; J0665; J1580; J2405; J3010

== ENCOUNTER → 2023-07-15 | Outpatient (REF) | payer MEDICARE, MEDICAID ==
[~2023-07-15] MED LIST changes: +SERT50TA29 PO; +ZYRTTAB8 PO
== END ==
LOC: SKLAB2 08:55
PROVIDERS: ATTEND Internal Medicine
DX: I48.91 Unspecified atrial fibrillation (principal)

== ENCOUNTER → 2023-07-23 | Outpatient (REF) | payer MEDICARE, MEDICAID ==
[2023-07-23 01:06] LABS: BASO % 0.3 % (0.0-1.0); EOS # 0.2 10^3/uL (0.0-0.5); EOS % 2.1 % (0.0-3.0); HEMATOCRIT 32.2 % (42.0-52.0); HEMOGLOBIN 10.1 g/dl (13.5-17.5); LYMPH # 1.4 10^3/uL (1.5-5.0); LYMPH % 16.2 % (24.0-44.0); MEAN CORPUSCULAR HEMOGLOBIN 26.6 pg (27.0-33.0); MEAN CORPUSCULAR HGB CONC 31.4 g/dl (32.0-36.5); MEAN CORPUSCULAR VOLUME 84.7 fl (80.0-96.0); MONO % 11.6 % (2.0-8.0); NEUTROPHILS # 6.2 10^3/uL (1.5-8.5); NEUTROPHILS % 69.4 % (36.0-66.0); PLATELET COUNT, AUTOMATED 408 10^3/uL (150-450); WHITE BLOOD COUNT 8.9 10^3/uL (4.0-10.0)
[2023-07-23 01:17] LABS: ALBUMIN 2.5 G/DL (3.2-5.2); ALKALINE PHOSPHATASE 83 U/L (46-116); ALT/SGPT 10 U/L (7.0-40); AST/SGOT 13 U/L (<34); BILIRUBIN,TOTAL 0.2 MG/DL (0.3-1.2); BLOOD UREA NITROGEN 15 MG/DL (9-23); CALCIUM LEVEL 8.1 MG/DL (8.3-10.6); CARBON DIOXIDE LEVEL 33 MMOL/L (20-31); CHLORIDE LEVEL 103 MMOL/L (98-107); GLOMERULAR FILTRATION RATE > 60.0 (>42); GLUCOSE, FASTING 87 MG/DL (74-106); POTASSIUM SERUM 3.9 MMOL/L (3.5-5.1); SODIUM LEVEL 140 MMOL/L (136-145); TOTAL PROTEIN 5.5 G/DL (5.7-8.2)
== END ==
LOC: SKLAB2 12:00
PROVIDERS: ATTEND Internal Medicine
DX: M86.672 Other chronic osteomyelitis, left ankle and foot (principal)

== ENCOUNTER → 2023-09-09 | Outpatient (REF) | payer MEDICARE, MEDICAID ==
[2023-09-09 10:09] LABS: HEMATOCRIT 37.1 % (42.0-52.0); HEMOGLOBIN 11.6 g/dl (13.5-17.5); MEAN CORPUSCULAR HEMOGLOBIN 26.4 pg (27.0-33.0); MEAN CORPUSCULAR HGB CONC 31.3 g/dl (32.0-36.5); MEAN CORPUSCULAR VOLUME 84.3 fl (80.0-96.0); PLATELET COUNT, AUTOMATED 363 10^3/uL (150-450); WHITE BLOOD COUNT 7.8 10^3/uL (4.0-10.0)
[2023-09-09 11:34] LABS: BLOOD UREA NITROGEN 17 MG/DL (9-23); CALCIUM LEVEL 8.4 MG/DL (8.3-10.6); CARBON DIOXIDE LEVEL 34 MMOL/L (20-31); CHLORIDE LEVEL 101 MMOL/L (98-107); CHOLESTEROL LEVEL 143 MG/DL (<200); CHOLESTEROL RISK RATIO 4.86 (<5); CREATININE FOR GFR 1.18 MG/DL (0.70-1.30); GLOMERULAR FILTRATION RATE > 60.0 (>42); GLUCOSE, FASTING 86 MG/DL (74-106); HDL CHOLESTEROL 29.4 MG/DL (>40); LDL CHOLESTEROL 88.2 MG/DL (<100); NON-HDL-C 113.6 MG/DL; POTASSIUM SERUM 4.5 MMOL/L (3.5-5.1); SODIUM LEVEL 139 MMOL/L (136-145); TRIGLYCERIDES LEVEL 127 MG/DL (<150)
== END ==
LOC: SKLAB2 08:27
PROVIDERS: ATTEND Internal Medicine
DX: M86.672 Other chronic osteomyelitis, left ankle and foot (principal); Z79.899 Other long term (current) drug therapy

== ENCOUNTER → 2024-02-16 | Outpatient (REF) | payer MEDICARE, MEDICAID ==
[2024-02-16 16:37] LABS: BASO % 0.3 % (0.0-1.0); EOS # 0.1 10^3/uL (0.0-0.5); EOS % 0.7 % (0.0-3.0); HEMOGLOBIN 11.1 g/dl (13.5-17.5); LYMPH # 1.3 10^3/uL (1.5-5.0); LYMPH % 11.6 % (24.0-44.0); MEAN CORPUSCULAR HEMOGLOBIN 26.1 pg (27.0-33.0); MEAN CORPUSCULAR HGB CONC 31.7 g/dl (32.0-36.5); MEAN CORPUSCULAR VOLUME 82.4 fl (80.0-96.0); MONO % 8.6 % (2.0-8.0); NEUTROPHILS # 8.9 10^3/uL (1.5-8.5); NEUTROPHILS % 78.4 % (36.0-66.0); PLATELET COUNT, AUTOMATED 334 10^3/uL (150-450); RED BLOOD COUNT 4.25 10^6/uL (4.30-6.10); WHITE BLOOD COUNT 11.4 10^3/uL (4.0-10.0)
[2024-02-16 17:08] LABS: ALBUMIN 3.1 G/DL (3.2-5.2); ALKALINE PHOSPHATASE 114 U/L (46-116); ALT/SGPT 15 U/L (7.0-40); AST/SGOT 14 U/L (<34); BILIRUBIN,TOTAL 0.3 MG/DL (0.3-1.2); BLOOD UREA NITROGEN 13 MG/DL (9-23); CALCIUM LEVEL 8.5 MG/DL (8.3-10.6); CARBON DIOXIDE LEVEL 35 MMOL/L (20-31); CHLORIDE LEVEL 98 MMOL/L (98-107); GLOMERULAR FILTRATION RATE > 60.0 (>42); GLUCOSE, FASTING 79 MG/DL (74-106); IRON (FE) 40 UG/DL (65-175); SODIUM LEVEL 135 MMOL/L (136-145)
== END ==
LOC: SKLAB2 15:47
PROVIDERS: ATTEND Internal Medicine
DX: I11.0 Hypertensive heart disease with heart failure (principal); F32.A Depression, unspecified; R53.83 Other fatigue; I50.9 Heart failure, unspecified; D64.9 Anemia, unspecified

== ENCOUNTER → 2024-02-23 | Outpatient (REF) | payer MEDICARE, MEDICAID ==
[2024-02-23 08:34] LABS: HEMATOCRIT 35.2 % (42.0-52.0); HEMOGLOBIN 11.5 g/dl (13.5-17.5); MEAN CORPUSCULAR HEMOGLOBIN 26.9 pg (27.0-33.0); MEAN CORPUSCULAR HGB CONC 32.7 g/dl (32.0-36.5); MEAN CORPUSCULAR VOLUME 82.4 fl (80.0-96.0); PLATELET COUNT, AUTOMATED 344 10^3/uL (150-450); RED BLOOD COUNT 4.27 10^6/uL (4.30-6.10); WHITE BLOOD COUNT 10.3 10^3/uL (4.0-10.0)
[2024-02-23 09:07] LABS: ALBUMIN 3.1 G/DL (3.2-5.2); ALKALINE PHOSPHATASE 115 U/L (46-116); ALT/SGPT 13 U/L (7.0-40); AST/SGOT 16 U/L (<34); BILIRUBIN,TOTAL 0.5 MG/DL (0.3-1.2); BLOOD UREA NITROGEN 14 MG/DL (9-23); CALCIUM LEVEL 8.8 MG/DL (8.3-10.6); CARBON DIOXIDE LEVEL 33 MMOL/L (20-31); CHLORIDE LEVEL 100 MMOL/L (98-107); CREATININE FOR GFR 1.06 MG/DL (0.70-1.30); GLOMERULAR FILTRATION RATE > 60.0 (>42); GLUCOSE, FASTING 86 MG/DL (74-106); POTASSIUM SERUM 4.2 MMOL/L (3.5-5.1); SODIUM LEVEL 137 MMOL/L (136-145); TOTAL PROTEIN 6.2 G/DL (5.7-8.2)
== END ==
LOC: SKLAB2 07:20
PROVIDERS: ATTEND Internal Medicine
DX: I10 Essential (primary) hypertension (principal); Z79.01 Long term (current) use of anticoagulants; I48.91 Unspecified atrial fibrillation; R91.8 Other nonspecific abnormal finding of lung field

== ENCOUNTER → 2024-02-24 | Outpatient (REF) | payer MEDICAID, MEDICARE ==
[~2024-02-24] MED LIST changes: +AMLO1TAB25 PO; +FURO40TA2 PO; +NORV5TAB PO; +POTA10CA70 PO
== END ==
LOC: SKLAB2 07:00
PROVIDERS: ATTEND Internal Medicine
DX: I51.7 Cardiomegaly (principal); J44.9 Chronic obstructive pulmonary disease, unspecified

== ENCOUNTER 2024-03-05 12:53 | Day surgery (SDC) | payer MEDICAID, MEDICARE ==
[~2024-03-05] VITALS: Ht 160 cm; Wt 57.2 kg
[2024-03-05] MEDS ORDERED: propofoL 200 MG/20 ML VIAL As Ordered ONE (13:04)
[2024-03-05] MEDS ORDERED: LR 1,000 ML IV SCH ×2 (13:20→14:10)
[2024-03-05] MEDS: ceFAZolin SOD 2 GM in IV 1 EA IV ONE (13:38)
[2024-03-05] MEDS: LIDOCAINE 2% MDV 20ML VIAL As Ordered ONE (13:42)
[2024-03-05] MEDS: GENTAMICIN SULF 80MG/2ML VIAL As Ordered ONE (13:59)
[2024-03-05] MEDS ORDERED: ePHEDrine SULFATE 25 MG/5 ML(5MG/ML) SYRINGE As Ordered ONE (14:00)
[2024-03-05] MEDS ORDERED: oxyCODONE 5MG TAB PO PRN (14:10)
[2024-03-05] MEDS ORDERED: ONDANSETRON 4MG 2ML VIAL IV PRN (14:10)
[2024-03-05] MEDS ORDERED: fentaNYL 100 MCG/2 ML INJECTION IV PRN (14:10)
[2024-03-05] MEDS ORDERED: MORPHINE 2 MG/ML 1ML VIAL IV PRN (14:10)
[2024-03-05 15:25] VITALS: BP 159/76; TEMP 98.4; O2SAT 95
== END 2024-03-05 15:45 | disposition home or self-care (01) ==
LOC: M SDC 12:53
PROVIDERS: ATTEND Podiatrist
DX: M86.172 Other acute osteomyelitis, left ankle and foot (principal); M20.42 Other hammer toe(s) (acquired), left foot; I48.91 Unspecified atrial fibrillation; I50.9 Heart failure, unspecified; Z86.73 Personal history of transient ischemic attack (TIA), and cerebral infarction without residual deficits; I11.0 Hypertensive heart disease with heart failure; E78.00 Pure hypercholesterolemia, unspecified; I73.9 Peripheral vascular disease, unspecified; Z99.81 Dependence on supplemental oxygen; F41.9 Anxiety disorder, unspecified; F32.A Depression, unspecified; J44.9 Chronic obstructive pulmonary disease, unspecified; R32 Unspecified urinary incontinence; Z87.891 Personal history of nicotine dependence; Z79.899 Other long term (current) drug therapy; Z79.82 Long term (current) use of aspirin; Z79.01 Long term (current) use of anticoagulants
CPT/HCPCS: 28820; 73630; 88300; J0665; J0690; J1580

== ENCOUNTER → 2024-03-18 | Outpatient (REF) | payer MEDICARE ==
[2024-03-18 11:19] LABS: HEMATOCRIT 32.3 % (42.0-52.0); HEMOGLOBIN 10.4 g/dl (13.5-17.5); MEAN CORPUSCULAR HEMOGLOBIN 26.7 pg (27.0-33.0); MEAN CORPUSCULAR HGB CONC 32.2 g/dl (32.0-36.5); PLATELET COUNT, AUTOMATED 355 10^3/uL (150-450); RED BLOOD COUNT 3.89 10^6/uL (4.30-6.10); WHITE BLOOD COUNT 10.1 10^3/uL (4.0-10.0)
[2024-03-18 11:56] LABS: BLOOD UREA NITROGEN 22 MG/DL (9-23); CALCIUM LEVEL 8.3 MG/DL (8.3-10.6); CARBON DIOXIDE LEVEL 34 MMOL/L (20-31); CHLORIDE LEVEL 98 MMOL/L (98-107); CHOLESTEROL LEVEL 149 MG/DL (<200); CHOLESTEROL RISK RATIO 4.51 (<5); CREATININE FOR GFR 1.13 MG/DL (0.70-1.30); GLOMERULAR FILTRATION RATE > 60.0 (>42); GLUCOSE, FASTING 110 MG/DL (74-106); LDL CHOLESTEROL 89.8 MG/DL (<100); POTASSIUM SERUM 3.6 MMOL/L (3.5-5.1); SODIUM LEVEL 136 MMOL/L (136-145); TRIGLYCERIDES LEVEL 131 MG/DL (<150)
== END ==
LOC: SKLAB2 07:00
PROVIDERS: ATTEND Internal Medicine
DX: E78.5 Hyperlipidemia, unspecified (principal)

== ENCOUNTER → 2024-03-26 | Outpatient (REF) | payer MEDICARE ==
[2024-03-26 13:38] LABS: BASO % 0.2 % (0.0-1.0); EOS % 0.6 % (0.0-3.0); HEMATOCRIT 31.8 % (42.0-52.0); HEMOGLOBIN 10.3 g/dl (13.5-17.5); LYMPH # 0.9 10^3/uL (1.5-5.0); LYMPH % 16.7 % (24.0-44.0); MEAN CORPUSCULAR HEMOGLOBIN 26.6 pg (27.0-33.0); MEAN CORPUSCULAR HGB CONC 32.4 g/dl (32.0-36.5); MEAN CORPUSCULAR VOLUME 82.2 fl (80.0-96.0); MONO # 0.7 10^3/uL (0.0-0.8); NEUTROPHILS # 3.5 10^3/uL (1.5-8.5); NEUTROPHILS % 69.1 % (36.0-66.0); PLATELET COUNT, AUTOMATED 282 10^3/uL (150-450); RED BLOOD COUNT 3.87 10^6/uL (4.30-6.10); WHITE BLOOD COUNT 5.1 10^3/uL (4.0-10.0)
[2024-03-26 14:11] LABS: ALBUMIN 2.8 G/DL (3.2-5.2); ALKALINE PHOSPHATASE 89 U/L (46-116); ALT/SGPT 29 U/L (7.0-40); AST/SGOT 40 U/L (<34); BILIRUBIN,TOTAL 0.2 MG/DL (0.3-1.2); BLOOD UREA NITROGEN 26 MG/DL (9-23); CALCIUM LEVEL 7.9 MG/DL (8.3-10.6); CARBON DIOXIDE LEVEL 34 MMOL/L (20-31); CHLORIDE LEVEL 97 MMOL/L (98-107); CREATININE FOR GFR 1.15 MG/DL (0.70-1.30); GLOMERULAR FILTRATION RATE > 60.0 (>42); GLUCOSE, FASTING 90 MG/DL (74-106); POTASSIUM SERUM 3.7 MMOL/L (3.5-5.1); SODIUM LEVEL 133 MMOL/L (136-145); TOTAL PROTEIN 6.1 G/DL (5.7-8.2)
== END ==
LOC: SKLAB2 12:52
PROVIDERS: ATTEND Internal Medicine
DX: U07.1 COVID-19 (principal); Z79.899 Other long term (current) drug therapy

== ENCOUNTER → 2024-03-26 | Outpatient (REF) | payer MEDICARE | LOC: SKLAB2 09:18 | PROVIDERS: ATTEND Internal Medicine | DX: U07.1 COVID-19 (principal) ==

== ENCOUNTER → 2024-03-29 | Outpatient (REF) | payer MEDICARE ==
[2024-03-29 14:53] LABS: ALBUMIN 2.7 G/DL (3.2-5.2); ALKALINE PHOSPHATASE 93 U/L (46-116); ALT/SGPT 21 U/L (7.0-40); AST/SGOT 29 U/L (<34); BILIRUBIN,TOTAL 0.3 MG/DL (0.3-1.2); BLOOD UREA NITROGEN 22 MG/DL (9-23); CALCIUM LEVEL 7.9 MG/DL (8.3-10.6); CARBON DIOXIDE LEVEL 31 MMOL/L (20-31); CHLORIDE LEVEL 100 MMOL/L (98-107); CREATININE FOR GFR 1.16 MG/DL (0.70-1.30); GLOMERULAR FILTRATION RATE > 60.0 (>42); GLUCOSE, FASTING 105 MG/DL (74-106); POTASSIUM SERUM 3.4 MMOL/L (3.5-5.1); SODIUM LEVEL 133 MMOL/L (136-145)
[2024-03-29 14:56] LABS: EOS % 0.4 % (0.0-3.0); HEMATOCRIT 33.9 % (42.0-52.0); HEMOGLOBIN 10.9 g/dl (13.5-17.5); LYMPH # 0.8 10^3/uL (1.5-5.0); LYMPH % 16.1 % (24.0-44.0); MEAN CORPUSCULAR HEMOGLOBIN 26.3 pg (27.0-33.0); MEAN CORPUSCULAR HGB CONC 32.2 g/dl (32.0-36.5); MEAN CORPUSCULAR VOLUME 81.7 fl (80.0-96.0); MONO # 0.6 10^3/uL (0.0-0.8); MONO % 11.6 % (2.0-8.0); NEUTROPHILS # 3.6 10^3/uL (1.5-8.5); NEUTROPHILS % 71.5 % (36.0-66.0); PLATELET COUNT, AUTOMATED 321 10^3/uL (150-450); RED BLOOD COUNT 4.15 10^6/uL (4.30-6.10); WHITE BLOOD COUNT 5.1 10^3/uL (4.0-10.0)
== END ==
LOC: SKLAB2 12:37
PROVIDERS: ATTEND Internal Medicine
DX: U07.1 COVID-19 (principal); R91.8 Other nonspecific abnormal finding of lung field

== ENCOUNTER → 2024-05-12 | Outpatient (REF) | payer MEDICARE ==
[2024-05-12 10:11] LABS: BASO % 0.2 % (0.0-1.0); EOS # 0.1 10^3/uL (0.0-0.5); EOS % 0.8 % (0.0-3.0); HEMATOCRIT 35.2 % (42.0-52.0); HEMOGLOBIN 11.2 g/dl (13.5-17.5); LYMPH # 0.9 10^3/uL (1.5-5.0); LYMPH % 9.8 % (24.0-44.0); MEAN CORPUSCULAR HEMOGLOBIN 25.8 pg (27.0-33.0); MEAN CORPUSCULAR HGB CONC 31.8 g/dl (32.0-36.5); MEAN CORPUSCULAR VOLUME 81.1 fl (80.0-96.0); MONO # 0.7 10^3/uL (0.0-0.8); MONO % 8.1 % (2.0-8.0); NEUTROPHILS # 7.3 10^3/uL (1.5-8.5); NEUTROPHILS % 80.8 % (36.0-66.0); PLATELET COUNT, AUTOMATED 362 10^3/uL (150-450); RED BLOOD COUNT 4.34 10^6/uL (4.30-6.10); WHITE BLOOD COUNT 9.1 10^3/uL (4.0-10.0)
[2024-05-12 10:43] LABS: BLOOD UREA NITROGEN 17 MG/DL (9-23); CALCIUM LEVEL 8.8 MG/DL (8.3-10.6); CARBON DIOXIDE LEVEL 33 MMOL/L (20-31); CHLORIDE LEVEL 100 MMOL/L (98-107); CREATININE FOR GFR 1.02 MG/DL (0.70-1.30); GLOMERULAR FILTRATION RATE > 60.0 (>42); GLUCOSE, FASTING 85 MG/DL (74-106); POTASSIUM SERUM 3.9 MMOL/L (3.5-5.1); SODIUM LEVEL 138 MMOL/L (136-145)
== END ==
LOC: SKLAB2 07:00
PROVIDERS: ATTEND Internal Medicine
DX: I10 Essential (primary) hypertension (principal)

== ENCOUNTER → 2024-08-02 | Outpatient (REF) | payer MEDICARE ==
[2024-08-02 13:58] LABS: BASO % 0.4 % (0.0-1.0); EOS # 0.2 10^3/uL (0.0-0.5); EOS % 1.9 % (0.0-3.0); HEMATOCRIT 35.2 % (42.0-52.0); HEMOGLOBIN 11.2 g/dl (13.5-17.5); LYMPH # 1.2 10^3/uL (1.5-5.0); LYMPH % 11.4 % (24.0-44.0); MEAN CORPUSCULAR HEMOGLOBIN 25.4 pg (27.0-33.0); MEAN CORPUSCULAR HGB CONC 31.8 g/dl (32.0-36.5); MEAN CORPUSCULAR VOLUME 79.8 fl (80.0-96.0); MONO # 0.8 10^3/uL (0.0-0.8); MONO % 7.8 % (2.0-8.0); NEUTROPHILS # 7.9 10^3/uL (1.5-8.5); NEUTROPHILS % 78.1 % (36.0-66.0); PLATELET COUNT, AUTOMATED 328 10^3/uL (150-450); RED BLOOD COUNT 4.41 10^6/uL (4.30-6.10); WHITE BLOOD COUNT 10.1 10^3/uL (4.0-10.0)
[2024-08-02 14:33] LABS: ALBUMIN 3.1 G/DL (3.2-5.2); ALKALINE PHOSPHATASE 91 U/L (40-129); ALT/SGPT 11 U/L (7.0-40); AST/SGOT 18 U/L (<34); BILIRUBIN,TOTAL 0.3 MG/DL (0.3-1.2); BLOOD UREA NITROGEN 17 MG/DL (9-23); CALCIUM LEVEL 8.7 MG/DL (8.3-10.6); CARBON DIOXIDE LEVEL 30 MMOL/L (20-31); CHLORIDE LEVEL 98 MMOL/L (98-107); CREATININE FOR GFR 0.97 MG/DL (0.70-1.30); GLOMERULAR FILTRATION RATE > 60.0 (>42); GLUCOSE, FASTING 124 MG/DL (74-106); POTASSIUM SERUM 3.6 MMOL/L (3.5-5.1); SODIUM LEVEL 137 MMOL/L (136-145); TOTAL PROTEIN 6.6 G/DL (5.7-8.2)
[2024-08-02 14:34] LABS: THYROID STIMULATING HORMONE 3.075 uIU/ML (0.55-4.78); VITAMIN B12 LEVEL 566 PG/ML (211-911)
== END ==
LOC: SKLAB2 12:55
PROVIDERS: ATTEND Internal Medicine
DX: R41.82 Altered mental status, unspecified (principal); M81.0 Age-related osteoporosis without current pathological fracture; M95.4 Acquired deformity of chest and rib

== ENCOUNTER → 2024-08-03 | Outpatient (REF) | payer MEDICARE | LOC: SKLAB2 15:22 | PROVIDERS: ATTEND Internal Medicine | DX: D72.829 Elevated white blood cell count, unspecified (principal); R41.82 Altered mental status, unspecified ==

== ENCOUNTER → 2024-09-23 | Outpatient (REF) | payer MEDICARE ==
[2024-09-23 09:17] LABS: HEMATOCRIT 32.5 % (42.0-52.0); HEMOGLOBIN 10.3 g/dl (13.5-17.5); MEAN CORPUSCULAR HEMOGLOBIN 25.2 pg (27.0-33.0); MEAN CORPUSCULAR HGB CONC 31.7 g/dl (32.0-36.5); MEAN CORPUSCULAR VOLUME 79.5 fl (80.0-96.0); PLATELET COUNT, AUTOMATED 407 10^3/uL (150-450); RED BLOOD COUNT 4.09 10^6/uL (4.30-6.10); WHITE BLOOD COUNT 8.3 10^3/uL (4.0-10.0)
[2024-09-23 09:45] LABS: BLOOD UREA NITROGEN 17 MG/DL (9-23); CALCIUM LEVEL 8.4 MG/DL (8.3-10.6); CARBON DIOXIDE LEVEL 33 MMOL/L (20-31); CHLORIDE LEVEL 100 MMOL/L (98-107); CHOLESTEROL LEVEL 164 MG/DL (<200); CHOLESTEROL RISK RATIO 4.11 (<5); CREATININE FOR GFR 1.03 MG/DL (0.70-1.30); GLOMERULAR FILTRATION RATE > 60.0 (>42); GLUCOSE, FASTING 74 MG/DL (74-106); HDL CHOLESTEROL 39.9 MG/DL (>40); LDL CHOLESTEROL 94.1 MG/DL (<100); NON-HDL-C 124.1 MG/DL; POTASSIUM SERUM 4.6 MMOL/L (3.5-5.1); SODIUM LEVEL 140 MMOL/L (136-145); TRIGLYCERIDES LEVEL 150 MG/DL (<150)
== END ==
LOC: SKLAB2 07:00
PROVIDERS: ATTEND Internal Medicine
DX: E78.5 Hyperlipidemia, unspecified (principal); Z79.899 Other long term (current) drug therapy

== ENCOUNTER → 2024-10-26 | Outpatient (REF) | payer MEDICARE, OTHER ==
[2024-10-26 15:28] LABS: BASO % 0.1 % (0.0-1.0); EOS # 0.1 10^3/uL (0.0-0.5); EOS % 0.5 % (0.0-3.0); HEMATOCRIT 37.2 % (42.0-52.0); HEMOGLOBIN 11.6 g/dl (13.5-17.5); LYMPH # 0.4 10^3/uL (1.5-5.0); LYMPH % 2.2 % (24.0-44.0); MEAN CORPUSCULAR HEMOGLOBIN 24.6 pg (27.0-33.0); MEAN CORPUSCULAR HGB CONC 31.2 g/dl (32.0-36.5); MONO # 0.6 10^3/uL (0.0-0.8); MONO % 3.7 % (2.0-8.0); NEUTROPHILS # 15.5 10^3/uL (1.5-8.5); NEUTROPHILS % 93.1 % (36.0-66.0); PLATELET COUNT, AUTOMATED 389 10^3/uL (150-450); RED BLOOD COUNT 4.71 10^6/uL (4.30-6.10); WHITE BLOOD COUNT 16.7 10^3/uL (4.0-10.0)
[2024-10-26 15:50] LABS: BLOOD UREA NITROGEN 20 MG/DL (9-23); CALCIUM LEVEL 8.9 MG/DL (8.3-10.6); CARBON DIOXIDE LEVEL 32 MMOL/L (20-31); CHLORIDE LEVEL 96 MMOL/L (98-107); CREATININE FOR GFR 0.97 MG/DL (0.70-1.30); GLOMERULAR FILTRATION RATE > 60.0 (>42); GLUCOSE, FASTING 90 MG/DL (74-106); POTASSIUM SERUM 4.6 MMOL/L (3.5-5.1); SODIUM LEVEL 136 MMOL/L (136-145)
== END ==
LOC: SKLAB2 13:27
PROVIDERS: ATTEND Internal Medicine
DX: R11.2 Nausea with vomiting, unspecified (principal); R19.7 Diarrhea, unspecified

== ENCOUNTER → 2024-11-08 | Outpatient (REF) | payer MEDICARE, OTHER ==
[2024-11-08 10:03] LABS: HEMATOCRIT 33.8 % (42.0-52.0); HEMOGLOBIN 10.8 g/dl (13.5-17.5); MEAN CORPUSCULAR HEMOGLOBIN 24.7 pg (27.0-33.0); MEAN CORPUSCULAR VOLUME 77.3 fl (80.0-96.0); PLATELET COUNT, AUTOMATED 422 10^3/uL (150-450); RED BLOOD COUNT 4.37 10^6/uL (4.30-6.10)
== END ==
LOC: SKLAB2 07:54
PROVIDERS: ATTEND Internal Medicine
DX: D72.829 Elevated white blood cell count, unspecified (principal)

== ENCOUNTER → 2024-11-22 | Outpatient (REF) | payer MEDICARE, OTHER ==
[2024-11-22 12:51] LABS: HEMATOCRIT 35.2 % (42.0-52.0); MEAN CORPUSCULAR HEMOGLOBIN 24.6 pg (27.0-33.0); MEAN CORPUSCULAR HGB CONC 31.3 g/dl (32.0-36.5); MEAN CORPUSCULAR VOLUME 78.6 fl (80.0-96.0); PLATELET COUNT, AUTOMATED 419 10^3/uL (150-450); RED BLOOD COUNT 4.48 10^6/uL (4.30-6.10); WHITE BLOOD COUNT 8.8 10^3/uL (4.0-10.0)
[2024-11-22 13:16] LABS: ALBUMIN 2.8 G/DL (3.2-5.2); BILIRUBIN,TOTAL 0.2 MG/DL (0.3-1.2); CALCIUM LEVEL 8.2 MG/DL (8.3-10.6); CREATININE FOR GFR 0.98 MG/DL (0.70-1.30); GLOMERULAR FILTRATION RATE 79.4 (>42); POTASSIUM SERUM 3.7 MMOL/L (3.5-5.1); TOTAL PROTEIN 6.6 G/DL (5.7-8.2)
[2024-11-22 13:18] LABS: THYROID STIMULATING HORMONE 2.983 uIU/ML (0.55-4.78)
== END ==
LOC: SKLAB2 12:03
PROVIDERS: ATTEND Internal Medicine
DX: R62.7 Adult failure to thrive (principal); Z79.899 Other long term (current) drug therapy

== ENCOUNTER → 2024-11-30 | Outpatient (REF) | payer MEDICARE, OTHER ==
[2024-11-30 15:27] LABS: BASO % 0.4 % (0.0-1.0); EOS # 0.3 10^3/uL (0.0-0.5); EOS % 2.5 % (0.0-3.0); HEMATOCRIT 34.8 % (42.0-52.0); HEMOGLOBIN 10.8 g/dl (13.5-17.5); LYMPH # 1.2 10^3/uL (1.5-5.0); LYMPH % 11.4 % (24.0-44.0); MEAN CORPUSCULAR HEMOGLOBIN 23.3 pg (27.0-33.0); MONO # 0.8 10^3/uL (0.0-0.8); MONO % 7.1 % (2.0-8.0); NEUTROPHILS # 8.5 10^3/uL (1.5-8.5); NEUTROPHILS % 78.1 % (36.0-66.0); PLATELET COUNT, AUTOMATED 474 10^3/uL (150-450); RED BLOOD COUNT 4.64 10^6/uL (4.30-6.10); WHITE BLOOD COUNT 10.9 10^3/uL (4.0-10.0)
[2024-11-30 15:48] LABS: BILIRUBIN,TOTAL 0.2 MG/DL (0.3-1.2); CALCIUM LEVEL 8.2 MG/DL (8.3-10.6); CREATININE FOR GFR 0.98 MG/DL (0.70-1.30); GLOMERULAR FILTRATION RATE 79.4 (>42); POTASSIUM SERUM 3.5 MMOL/L (3.5-5.1); TOTAL PROTEIN 6.8 G/DL (5.7-8.2)
== END ==
LOC: SKLAB2 14:40
PROVIDERS: ATTEND Internal Medicine
DX: R41.82 Altered mental status, unspecified (principal)

== ENCOUNTER 2024-12-07 10:38 | Inpatient (IN) | payer MEDICARE ==
[~2024-12-07] VITALS: Ht 172.7 cm; Wt 48.1 kg
[2024-12-07] MEDS: ALBUTEROL SULFATE 2.5MG/0.5ML INH CONCENTRATE NEB SOLN INH ONE (11:03)
[2024-12-07] MEDS: IPRATROPIUM 0.5MG/ALBUTEROL 2.5MG INH SOL UD 3ML NEB ONE (11:04)
[2024-12-07 11:17] LABS: BASO % 0.1 % (0.0-1.0); EOS # 0.1 10^3/uL (0.0-0.5); EOS % 0.5 % (0.0-3.0); HEMATOCRIT 31.2 % (42.0-52.0); HEMOGLOBIN 9.8 g/dl (13.5-17.5); LYMPH # 0.8 10^3/uL (1.5-5.0); LYMPH % 4.3 % (24.0-44.0); MEAN CORPUSCULAR HGB CONC 31.4 g/dl (32.0-36.5); MEAN CORPUSCULAR VOLUME 76.3 fl (80.0-96.0); MONO # 1.2 10^3/uL (0.0-0.8); MONO % 6.8 % (2.0-8.0); NEUTROPHILS # 15.5 10^3/uL (1.5-8.5); NEUTROPHILS % 87.2 % (36.0-66.0); PLATELET COUNT, AUTOMATED 489 10^3/uL (150-450); RED BLOOD COUNT 4.09 10^6/uL (4.30-6.10); WHITE BLOOD COUNT 17.8 10^3/uL (4.0-10.0)
[2024-12-07 11:47] LABS: CK-MB VALUE MASS 2.3 NG/ML (<3.6)
[2024-12-07 11:49] LABS: ALBUMIN 3.1 G/DL (3.2-5.2); ALKALINE PHOSPHATASE 112 U/L (40-129); ALT/SGPT 21 U/L (7.0-40); AST/SGOT 27 U/L (<34); BILIRUBIN,DIRECT < 0.1 MG/DL (<0.4); BILIRUBIN,TOTAL 0.3 MG/DL (0.3-1.2); BLOOD UREA NITROGEN 35 MG/DL (9-23); CALCIUM LEVEL 8.6 MG/DL (8.3-10.6); CARBON DIOXIDE LEVEL 26 MMOL/L (20-31); CHLORIDE LEVEL 100 MMOL/L (98-107); CPK CREATINE PHOSPHOKINASE 102 U/L (46-171); CREATININE FOR GFR 1.15 MG/DL (0.70-1.30); GLOMERULAR FILTRATION RATE 65.6 (>42); GLUCOSE, FASTING 98 MG/DL (74-106); MB/CK RELATIVE INDEX 2.25 (< OR =4); POTASSIUM SERUM 4.8 MMOL/L (3.5-5.1); SODIUM LEVEL 137 MMOL/L (136-145); TOTAL PROTEIN 7.3 G/DL (5.7-8.2)
[2024-12-07] MEDS ORDERED: ISOVUE-370 76% 100ML VIAL As Ordered ONE (12:56)
[2024-12-07] MEDS: LIDOCAINE 2% 5ML JELLY UROJET TOP ONE (13:20)
[2024-12-07 13:43] LABS: PROCALCITONIN 0.27 ng/ml
[2024-12-07 13:51] LABS: KETONE, URINE MANUAL REFLEX NEGATIVE (NEGATIVE); NITRITE, URINE MANUAL RFX NEGATIVE (NEGATIVE); PROTEIN, URINE MANUAL REFLEX TRACE mg/dL (NEGATIVE)
[2024-12-07 13:52] LABS: UROBILINOGEN, UA MANUAL REFLEX NORMAL (NORMAL)
[2024-12-07 13:54] LABS: HYALINE CAST, URINE RFX NONE SEEN /lpf (0-1); SQUAMOUS EPITHELIAL URINE RFX SMALL AMOUNT /hpf (SMALL AMT); TRANSITIONAL EPI, URINE RFX SMALL AMOUNT /hpf
[2024-12-07 13:55] LABS: MICROSCOPIC EXAM RFX UNSPUN
[2024-12-07 15:38] LABS: ABG HCO3 23.4 MMOL/L (22.0-26.0); ABG O2 SATURATION 92.4 % (95.0-99.0); ABG PARTIAL PRESSURE CO2 33.4 mmHg (35.0-45.0); ABG PARTIAL PRESSURE O2 63.7 mmHg (75.0-100.0); ABG STANDARD HCO3 24.4 MMOL/L. (22.0-26.0); ABG TOTAL CO2 24.5 MMOL/L (23.0-31.0); ABG pH (ARTERIAL) 7.464 UNITS (7.350-7.450)
[2024-12-07] MEDS: CEFEPIME HCL 2 GM in DEXTROSE 5% (D5W) ADV/MINI-BAG 50 ML IV ONE (16:02)
[2024-12-07] MEDS: DOXYCYCLINE HYCLATE 100 MG in DEXTROSE 5% (D5W) MINI-BAG PLU 100 ML IV ONE (16:41)
[2024-12-07] MEDS ORDERED: MACR100C43 PO (17:55)
[2024-12-07] MEDS ORDERED: ACET1TAB55 PO (17:55)
[2024-12-07] MEDS ORDERED: POTA-151 PO (17:55)
[2024-12-07] MEDS ORDERED: ZOLO100T PO (17:55)
[2024-12-07] MEDS ORDERED: MIRT-88 PO (17:55)
[2024-12-07] MEDS ORDERED: HOME MED LIST COMPLETE! XX SCH (18:00)
[2024-12-07] MEDS: IPRATROPIUM 0.5MG/ALBUTEROL 2.5MG INH SOL UD 3ML NEB SCH (21:20)
[2024-12-07 22:07] VITALS: BP 166/77; TEMP 99.5; O2SAT 92
[2024-12-08] VITALS (9 sets, daily range): BP systolic 161–168; BP diastolic 80–86; TEMP 98.4–99.3; O2SAT 85–100
[2024-12-08] MEDS: CEFEPIME HCL 2 GM in DEXTROSE 5% (D5W) ADV/MINI-BAG 50 ML IV SCH (03:54)
[2024-12-08 05:12] LABS: HEMOGLOBIN 7.9 g/dl (13.5-17.5); MEAN CORPUSCULAR HEMOGLOBIN 24.4 pg (27.0-33.0); MEAN CORPUSCULAR HGB CONC 31.6 g/dl (32.0-36.5); MEAN CORPUSCULAR VOLUME 77.2 fl (80.0-96.0); PLATELET COUNT, AUTOMATED 398 10^3/uL (150-450); RED BLOOD COUNT 3.24 10^6/uL (4.30-6.10); WHITE BLOOD COUNT 16.6 10^3/uL (4.0-10.0)
[2024-12-08 05:16] LABS: CALCIUM LEVEL 8.1 MG/DL (8.3-10.6); CREATININE FOR GFR 1.15 MG/DL (0.70-1.30); GLOMERULAR FILTRATION RATE 65.6 (>42); POTASSIUM SERUM 3.9 MMOL/L (3.5-5.1)
[2024-12-08 07:08] LABS: PROCALCITONIN 0.21 ng/ml
[2024-12-08] MEDS: ATORVASTATIN 20 MG TAB PO SCH (09:00)
[2024-12-08] MEDS: POTASSIUM CHLORIDE 10MEQ SR TABLET PO SCH (09:00)
[2024-12-08] MEDS: APIXABAN 5 MG TAB PO SCH (09:00)
[2024-12-08] MEDS: FERROUS SULFATE 325MG TAB PO SCH (09:00)
[2024-12-08] MEDS: ASPIRIN 81MG ENTERIC TABLET PO SCH (09:00)
[2024-12-08] MEDS: FUROSEMIDE 40 MG TAB PO SCH (09:00)
[2024-12-08] MEDS: SERTRALINE 100 MG TAB PO SCH (09:00)
[2024-12-08] MEDS ORDERED: predniSONE 20 MG TAB PO SCH (09:00)
[2024-12-08] MEDS: busPIRone 5 MG TAB PO SCH (09:00)
[2024-12-08] MEDS: PANTOPRAZOLE 40MG VIAL IV SCH (09:49)
[2024-12-08] MEDS: CARVedilol 6.25 MG TAB PO SCH (13:22)
[2024-12-08] MEDS: MIRTAZAPINE 15 MG TAB PO SCH (20:05)
[2024-12-08 20:14] LABS: CREATININE FOR GFR 1.25 MG/DL (0.70-1.30); GLOMERULAR FILTRATION RATE 59.3 (>42)
[2024-12-08] MEDS: ENOXAPARIN 60MG/0.6ML SYRINGE (J1650 PER 10MG) SC SCH (20:32)
[2024-12-09 04:34] VITALS: TEMP 98.2; O2SAT 97
[2024-12-09 04:42] VITALS: BP 176/74
[2024-12-09] MEDS: FUROSEMIDE 20MG/2ML VIAL IV SCH (09:34)
[2024-12-09 12:00] VITALS: BP 144/76; TEMP 97.2; O2SAT 95
[2024-12-09] MEDS ORDERED: BARIUM SULFATE 700 MG TABLET As Ordered ONE (12:52)
[2024-12-09] MEDS ORDERED: VARIBAR PUDDING 40% w/v 230ML TUBE As Ordered ONE (12:52)
[2024-12-09] MEDS ORDERED: VARIBAR NECTAR 40% w/v 240ML SUSP BTL As Ordered ONE (12:52)
[2024-12-09] MEDS ORDERED: E-Z-PAQUE 96% w/w SUSP 176GM BTL As Ordered ONE (12:52)
[2024-12-09 18:09] VITALS: BP 188/94; TEMP 98.1; O2SAT 100
[2024-12-09] MEDS ORDERED: LORazepam 1 MG TAB PO PRN (18:15)
[2024-12-09] MEDS ORDERED: HYOSCYAMINE SULFATE 0.125 MG SUBL TABLET PO PRN (18:15)
[2024-12-09] MEDS ORDERED: SCOPOLAMINE 1MG TRANSDERMAL PATCH TOP PRN (18:15)
[2024-12-09] MEDS ORDERED: MORPHINE 10MG/0.5ML ORAL CONCENTRATE SOLUTION U/D SL PRN (18:15)
[2024-12-09 18:26] LABS: ABG BASE EXCESS -2.6 (-2.0-2.0); ABG O2 SATURATION 96.7 % (95.0-99.0); ABG PARTIAL PRESSURE CO2 32.1 mmHg (35.0-45.0); ABG PARTIAL PRESSURE O2 92.3 mmHg (75.0-100.0); ABG STANDARD HCO3 22.3 MMOL/L. (22.0-26.0); ABG pH (ARTERIAL) 7.433 UNITS (7.350-7.450)
[2024-12-09] MEDS: MORPHINE 2 MG/ML 1ML VIAL IV PRN (20:47)
[2024-12-09] MEDS ORDERED: LIDOCAINE 5% (LIDODERM) PATCH TD SCH (21:00)
[2024-12-09] MEDS: LORazepam 2 MG/ML 1ML VIAL IV PRN (22:43)
== END 2024-12-10 10:40 | disposition expired | DRG 180 ==
LOC: EDBD 10:38 → M ED 10:38 → M ED INP 20:29 → EEVIPCON 20:29 → M MSPAV 21:55
PROVIDERS: ADMIT Student in an Organized Health Care Education/Training Program; ATTEND Student in an Organized Health Care Education/Training Program
DX: C34.32 Malignant neoplasm of lower lobe, left bronchus or lung (principal); E43 Unspecified severe protein-calorie malnutrition; J69.0 Pneumonitis due to inhalation of food and vomit; J96.21 Acute and chronic respiratory failure with hypoxia; J44.1 Chronic obstructive pulmonary disease with (acute) exacerbation; R64 Cachexia; I11.0 Hypertensive heart disease with heart failure; I50.9 Heart failure, unspecified; I73.9 Peripheral vascular disease, unspecified; E78.5 Hyperlipidemia, unspecified; K21.9 Gastro-esophageal reflux disease without esophagitis; R13.12 Dysphagia, oropharyngeal phase; J43.9 Emphysema, unspecified; Z51.5 Encounter for palliative care; Z66 Do not resuscitate; H91.93 Unspecified hearing loss, bilateral; I48.91 Unspecified atrial fibrillation; F03.90 Unspecified dementia, unspecified severity, without behavioral disturbance, psychotic disturbance, mood disturbance, and anxiety; Z87.891 Personal history of nicotine dependence; Z79.01 Long term (current) use of anticoagulants; Z79.82 Long term (current) use of aspirin; Z79.899 Other long term (current) drug therapy; Z99.81 Dependence on supplemental oxygen